=== PATIENT | female | born 1985 | race Two or more races ===

== ENCOUNTER 2020-01-25 13:37 | Emergency (ER) | payer OTHER, SELFPAY ==
--- NOTE | 2020-01-25 | XR_ITS ---
EXAMINATION: XR KNEE, LEFT CLINICAL INFORMATION: Left knee pain. COMPARISON: None TECHNIQUE: Four views of the left knee. FINDINGS: Bones and soft tissues are normal. No fracture or joint effusion. Alignment is anatomic. Joint spaces are well maintained. No abnormal soft tissue calcification. XR/XR knee LT 4V IMPRESSION: Normal left knee.
[2020-01-25 14:55] VITALS: PULSE 72; RESP 18; TEMP 36.9; O2SAT 98; BMI 25.7
--- NOTE | 2020-01-25 15:14 | ED_ITS ---
HPI - Extremity Injury (Lower) General Chief Complaint: Extremity Injury, Lower Stated Complaint: Knee Pain Time Seen by Provider: 01/25/20 15:14 Source: patient Mode of arrival: ambulatory Limitations: no limitations History of Present Illness HPI Narrative: 34 year old female comes in to ER with c/o knee pain. Was playing around and her knee was bent in a way that caused a cracking sound, now she has severe pain and is unable to weightbear. Related Data Previous Rx's Medication Instructions Recorded naproxen [Naprosyn] 500 mg PO BID PRN #30 tab 01/25/20 Allergies Allergy/AdvReac Type Severity Reaction Status Date / Time No Known Allergies Allergy Mild UNKNOWN Verified 01/25/20 15:00 citalopram AdvReac Unknown shortness Verified 01/25/20 14:59 of breath, chest pain Review of Systems Constitutional: Constitutional: Reports fever(s) (subjective), Denies headache(s) and Denies weakness Eyes: Eyes: Denies change in vision and Denies eye pain ENT: Reports Normal hearing present, Denies headache(s) and Denies sore throat Cardiovascular: Cardiovascular: Denies chest pain, Denies palpitations and Denies dyspnea Respiratory: Respiratory: Denies chest congestion, Denies cough, Denies dyspnea and Denies wheezing Gastrointestinal: Gastrointestinal: Denies abdominal pain, Denies change in bowel habits, Denies constipation, Denies diarrhea, Denies nausea and Denies vomiting Genitourinary: Genitourinary: Denies urinary frequency, Denies dysuria, Denies flank pain and Denies urinary incontinence Musculoskeletal: Musculoskeletal: Reports as per HPI, Reports abnormal gait, Reports arthralgias, Reports joint swelling and Reports limited range of motion Comments: Left Knee Integumentary/Breasts: Skin/Breast: Denies change in hair, Denies pruritus, Denies erythema, Denies rash, Denies unusual bruising and Denies wounds Neurologic: Reports Normal hearing present, Reports Abnormal speech present, Reports abnormal gait, Denies headache(s), Denies memory loss, Denies paresthesias, Denies tremor(s) and Denies weakness Psychiatric: Psychiatric: Denies anxiety, Denies depression, Denies irritability and Denies memory loss Endocrine: Endocrine: Denies change in body appearance and Denies palpitations Hematologic/Lymphatic: Hematologic/Lymphatic: Denies easy bleeding, Denies easy bruising and Denies lymphadenopathy Allergic/Immunologic: Allergic/Immunologic: Denies wheezing [facility] Social History Social History Smoking Status: Current every day smoker Smoked in Last 30 Days: No Use of substances other than those prescribed or required for medical reasons: No Advance Directives: No Advance Directives Information Provided: Yes Physical Exam Vital Signs: Vital Signs: Last Vital Signs Temp 98.5 F 01/25/20 14:55 Pulse 72 01/25/20 14:55 Resp 18 01/25/20 14:55 Pulse Ox 98 01/25/20 14:55 Body Mass Index 25.7 Const: General: cooperative, healthy appearing, comfortable, no acute distress, well developed, alert, awake and well groomed Nutritional Appearance: average body habitus Orientation/consciousness: patient oriented x3 Limitations: no limitations HENMT: Head: Yes normal to inspection Ears: hearing grossly normal bilaterally, external ears normal, TM's normal bilaterally, mastoids normal and other (FROM MASS NOTED AT TMJ AREA, TENDER TO PALPATION. NO ERYTHEMA, NO DRAINAGE) Eyes: General: appearance normal, both eyes and all related structures Neck: Other: FIRM MASS NOTED AT RIGHT TMJ REGION, TENDER TO PALPATION Neck: Yes normal visual inspection and Yes no lymphadenopathy Thyroid: Thyroid normal Lymphatic: no lymphadenopathy noted Chest: Chest palpation & inspection: normal inspection of the chest and normal palpation of entire chest wall Resp: Effort & Inspection: normal respiratory effort and able to speak in complete sentences Auscultation: clear to auscultation bilaterally, no crackles, no rales, no rhonchi and no wheezes Cardio: Rate: regular rate Rhythm: regular rhythm GI: Inspection: Yes normal to inspection : General: Yes no CVA tenderness Back/Spine/Pelvis: Back: no CVA tenderness Cervical Spine: normal cervical lordosis and cervical ROM normal Thoracic/Lumbar Spine: thoracic and lumbar spine normal to inspection Skin: General skin exam: no rashes or lesions noted Lesions: no lesions Rashes: no rashes Neuro: General: patient oriented x3 Cranial nerves: Yes Normal hearing present Cognition (Neuro): normal cognition Speech: Abnormal speech present Gait exam (Neuro): Normal gait present Motor exam (neuro): 5/5 motor strength present throughout Sensory Exam: Normal double simultaneous stimulation for sensation Extrem: General: Yes normal to inspection Left lower extremity: knee Details: normal to inspection, tenderness, swelling and knee ligament exam abnormal Details: anterior drawer test, valgus stress test and varus stress test Psych: Appearance: grossly normal Mental Status: mental status grossly normal Speech and movement: Normal speech and movement present Affect: normal affect Attitude: cooperative Thought process: Normal thought pr ocess present Thought content: Normal thought content present Insight: Good insight present (Psych) Judgement: Good judgement present (Psych) Course Course Course Narrative: 34 year old female comes into ER with left knee pain since this morning. Was rough housing, knee cracked and since then she has had sever pain and has not been able to weight bear comfortably, MDM - Extremity Injury (Lower) MDM Narrative Medical decision making narrative: LEFT Knee Injury Medical Records Attestation: I reviewed the patient's medical records. Imaging Data Knee Xray: Radiologist's impression: [address] [address] XRay Report Signed Patient: Xin TabaresMR#: [id number] : 1985Acct:[id number] Age/Sex: 34 / FADM Date: 01/25/20 Loc: HO.ED Attending Dr: Ordering Physician: Generic ED Physician Date of Service: 01/25/20 Procedure(s): XR knee LT 4V Accession Number(s): [id number] cc: Generic ED Physician~ EXAMINATION: XR KNEE, LEFT CLINICAL INFORMATION: Left knee pain. COMPARISON: None TECHNIQUE: Four views of the left knee. FINDINGS: Bones and soft tissues are normal. No fracture or joint effusion. Alignment is anatomic. Joint spaces are well maintained. No abnormal soft tissue calcification. XR/XR knee LT 4V IMPRESSION: Normal left knee. Dictated By:Dylon INFANTE MD Signed By:<Electronically signed by Dylon INFANTE MD in OV>01/25/20 1447 DD/ 1439 TD/TT: Signal Apprentice: KRISSY Discharge Plan Discharge Clinical Impression: Injury of knee, left Patient Disposition: Home, Self-Care Instructions: Knee Sprain (ED), Knee Immobilizer (ED) Prescriptions: New naproxen [Naprosyn] 500 mg tablet 500 mg PO BID PRN (Reason: pain) Qty: 30 RF: 0 Referrals: Jr Del Castillo MD [Physician] - 2 days (Left Knee Injury) Stand Alone Forms: Work/School Release
== END 2020-01-25 16:45 | disposition home or self-care (01) ==
PROVIDERS: Emergency Provider Emergency Medicine; PCP Internal Medicine
DX: M25.562 Pain in left knee (principal); F17.200 Nicotine dependence, unspecified, uncomplicated; Z71.6 Tobacco abuse counseling; Z79.899 Other long term (current) drug therapy
CPT/HCPCS: 73564; 99283; 99284

== ENCOUNTER 2020-12-03 19:01 | Emergency (ER) | payer OTHER, SELFPAY | END 2020-12-03 20:21 | disposition left against medical advice (07) | PROVIDERS: Emergency Provider Emergency Medicine; PCP Internal Medicine | DX: L02.01 Cutaneous abscess of face (principal) ==

== ENCOUNTER 2021-06-01 13:33 | Emergency (ER) | payer OTHER, SELFPAY ==
[2021-06-01 14:24] VITALS: BP 110/43; PULSE 64; RESP 18; TEMP 36.4; O2SAT 99; BMI 24.2
== END 2021-06-01 15:27 | disposition left against medical advice (07) ==
LOC: HO.ED 15:26
PROVIDERS: Emergency Provider Emergency Medicine; PCP Internal Medicine
DX: Z04.1 Encounter for examination and observation following transport accident (principal)
CPT/HCPCS: 99281; 99282

== ENCOUNTER 2021-07-05 09:22 | Emergency (ER) | payer OTHER, SELFPAY ==
[2021-07-05 09:42] VITALS: BP 135/66; PULSE 90; RESP 18; TEMP 36.6; O2SAT 99; BMI 23.5
[2021-07-05 10:16] LABS: COVID-19 Test Negative (Negative); IDNOW Serial# 16C4AD1C
[2021-07-05 10:18] LABS: Influenza A Positive (Negative); Influenza B2 Negative (Negative)
[2021-07-05 10:19] LABS: IDNOW Serial# 08D9AD1C; Strep A Nucleic Acid Negative (Negative)
--- NOTE | 2021-07-05 11:07 | PC.NURSE ---
patient states she was in contact with a friend who was positive for flu . c/o of fever over nights c, cough and body aches for two days. swabbed for covid, flu and strep, results pending .
--- NOTE | 2021-07-05 11:27 | ED_ITS ---
HPI - URI/Sore Throat General Chief Complaint: Upper Respiratory Symptoms Stated Complaint: Fever/Cough Time Seen by Provider: 07/05/21 11:22 Source: patient Mode of arrival: ambulatory Limitations: no limitations History of Present Illness MD elicited complaint: fever, cough, sore throat, rhinorrhea and nasal congestion Onset (ago): day(s) (3) Consistency: constant and progressively worsening Severity: moderate Able to tolerate fluids by mouth: Yes Exacerbating factors: swallowing Relieving factors: nothing Context: sick contacts (Friend has similar symptoms in tested positive for the flu) Associated symptoms: fever, chills, diaphoresis, headache, rhinorrhea, nasal congestion, sore throat and cough Treatments prior to arrival: none Related Data Previous Rx's Medication Instructions Recorded naproxen 500 mg tablet (Naprosyn) 500 mg PO BID PRN #30 tab 01/25/20 sulfamethoxazole 800 1 tab PO BID 10 Days #20 tab 03/24/20 mg-trimethoprim 160 mg tablet (Bactrim DS) acetaminophen 500 mg tablet 1,000 mg PO QID PRN #14 tab 07/05/21 (Tylenol Extra Strength) codeine 10 mg-guaifenesin 100 mg/5 5 ml PO Q6H PRN #120 ml 07/05/21 mL oral liquid (Guaifenesin AC) ibuprofen 800 mg tablet 800 mg PO Q8H PRN #14 tab 07/05/21 Allergies Allergy/AdvReac Type Severity Reaction Status Date / Time citalopram AdvReac Intermediate shortness Verified 07/05/21 09:42 of breath, chest pain Review of Systems Review of Systems: Constitutional : + positive fevers/chills/fatigue/malaise, No Weight loss, No Night Sweats ENT/Mouth : + sore throat/nasal congestion/rhinorrhea/ear pain, No Hearing loss, No Sinus Pain, No Hoarseness, No Swallowing Difficulty Eyes: No Eye Pain, No Swelling, No Redness, No Foreign Body, No Discharge, No Vision Changes Cardiovascular : No Chest Pain, No SOB, No Dyspnea on Exertion, No Orthopnea, No Edema, No Palpitations Respiratory : + Cough, No Sputum, No Wheezing, No Smoke Exposure, No Dyspnea Gastrointestinal : No Nausea, No Vomiting, No Diarrhea, No Constipation, No abdominal Pain, No Hematochezia, No Melena Genitourinary : no irregular bleeding, No Dysuria, No Urinary Frequency, No Hematuria, No Urinary Incontinence, No Urgency, No Flank Pain, No Urinary Flow Changes, No Hesitancy Musculoskeletal : No joint pain, + Myalgias, No Joint Swelling Skin : No Skin Lesions, No rash Neuro : No Weakness, No Numbness, No Paresthesias, No Loss of Consciousness, No Dizziness, No Headache Psych : No Anxiety/Panic, No Depression, No SI/HI/AH/VH, No Social Issues, Heme/Lymph: No Bruising, No Bleeding,No Lymphadenopathy Endocrine : No Polyuria, No Polydipsia, No Temperature Intolerance Yes all other systems are reviewed and are negative [facility] Past Medical History Attestation statement: The following information was validated with the patient. Medical History Abscess of coccyx UTI (urinary tract infection) Surgical History History of tubal ligation Family History Family History Father Medical history unknown Mother Breast cancer Hypertension Sister Asthma Daughter Asthma Maternal Grandfather No problems noted. Social History Social History Alcohol intake: current Alcohol intake frequency: holidays/special occasions only Alcohol type: beer and wine Advance Directives: No Patient : No Physical Exam Vital Signs: Vital Signs: Last Vital Signs Temp 97.8 F 07/05/21 09:42 Pulse 90 07/05/21 09:42 Resp 18 07/05/21 09:42 BP 135/66 07/05/21 09:42 Pulse Ox 99 07/05/21 09:42 BMI result Body Mass Index 23.5 vital signs have been reviewed as normal and appeared to be correct. Blood pressure normal. Heart rate normal. Respiration rate normal. Temperature normal. Oxygen saturation normal. Appearance: Alert. Oriented X3. No acute distress. Head: Normal external exam. Normocephalic. Atraumatic. Eyes: PERRLA. EOMI. Conjunctiva and sclera normal. Eyelids normal. ENT: EAC normal. TM's Normal. Pharynx normal. Uvula midline. Moist mucous membranes. No lesions/ulcerations or masses noted on the tongue. Normal voice. No trismus noted. No drooling noted. No muffled voice noted. Neck: Normal inspection. Neck supple. FROM. No adenopathy. Thyroid Normal. No meningeal signs. No neck mass noted. CVS: Normal heart rate and rhythm. Heart sound normal. Pulses normal throughout. No murmurs/rales/gallops. Respiratory: No respiratory distress. Painless inspiration. Breath sounds normal. No wheezes/rales/rhonchi noted. Chest nontender. No crepitus is noted. No signs of trauma noted. No accessory muscle usage noted or decreased air movement noted. No signs of trauma. Abdomen: Soft and nontender. Bowel sounds normal in all 4 quadrants. No distention noted. No organomegaly noted. No visible injury noted. Back: Full range of motion noted. Nontender. Skin: Skin warm and dry. Normal skin color. Normal skin turgor. No rashes/lesions/lacerations noted. Extremities: Extremities exhibit normal range of motion and nontender. Neuro: Oriented X 3. No motor deficit. No sensory deficit. Reflexes normal. Normal steady gait. No focal neuro deficits noted. CN's II-XII intact bilaterally? Vascular: + radial pulses Normal cap refill. No cyanosis noted to upper extremity nails Course Course Course Narrative: Patient positive for influenza A. Negative for COVID and strep. No imaging indicated. Will DC home with symptomatic treatment instructions return if any new or worsening symptoms to follow up with primary care provider. Pt understands and agrees with plan MDM - URI/Sore Throat Medical Records Attestation: I reviewed the patient's medical records. Lab Data Attestation: I reviewed the patient's lab results. Labs: Lab Results 07/05/21 07/05/21 07/05/21 Range/Units 09:50 09:50 09:50 COVID-19 (OZZY) Negative (Negative) COVID-19 Clin Com See Note Influenza Type A (SEBASTIÁN) Positive A (Negative) Influenza Type B (SE[facility]STI[facility]N) Negative (Negative) Influenza A & B Note See Note S. pyogenes GrpA [place] Negative (Negative) Discharge Plan Discharge Clinical Impression: Influenza A Patient Disposition: Home, Self-Care Instructions: Influenza (ED) Prescriptions: New codeine-guaifenesin [Guaifenesin AC] 10-100 mg/5 mL liquid 5 ml PO Q6H PRN (Reason: cold symptoms) Qty: 120 0RF ibuprofen 800 mg tablet 800 mg PO Q8H PRN (Reason: pain) Qty: 14 0RF acetaminophen [Tylenol Extra Strength] 500 mg tablet 1,000 mg PO QID PRN (Reason: fever or pain) Qty: 14 0RF No Action naproxen [Naprosyn] 500 mg tablet 500 mg PO BID PRN (Reason: pain) Qty: 30 0RF sulfamethoxazole-trimethoprim [Bactrim DS] 800-160 mg tablet 1 tab PO BID 10 Days Qty: 20 0RF Referrals: Mindy Clancy MD [Primary Care Provider] - Stand Alone Forms: Work/School Release Print Language: Kyrgyz
== END 2021-07-05 11:43 | disposition home or self-care (01) ==
PROVIDERS: Emergency Provider Emergency Medicine; PCP Internal Medicine
DX: J10.1 Influenza due to other identified influenza virus with other respiratory manifestations (principal); R50.9 Fever, unspecified; R05.9 Cough, unspecified; R51.9 Headache, unspecified; Z20.822 Contact with and (suspected) exposure to COVID-19; Z79.899 Other long term (current) drug therapy
CPT/HCPCS: 87502; 87635; 87651; 99283

== ENCOUNTER 2021-07-15 17:42 | Emergency (ER) | payer OTHER, SELFPAY | END 2021-07-15 19:54 | disposition left against medical advice (07) | PROVIDERS: Emergency Provider Emergency Medicine; PCP Internal Medicine | DX: R05.9 Cough, unspecified (principal); M54.9 Dorsalgia, unspecified ==

== ENCOUNTER 2021-12-13 13:03 | Outpatient (REF) | payer OTHER, SELFPAY ==
[2021-12-15 05:31] LABS: Rubella IgG Antibody 3.82 Index
== END 2021-12-13 13:04 | disposition home or self-care (01) ==
LOC: HO.LAB 13:03
PROVIDERS: PCP Internal Medicine; Visit Provider Internal Medicine
DX: Z01.84 Encounter for antibody response examination (principal); Z28.39 Other underimmunization status
CPT/HCPCS: 36415; 86735; 86762; 86765; 86787

== ENCOUNTER 2021-12-15 15:33 | Outpatient (REF) | payer OTHER, SELFPAY ==
[2021-12-15 15:43] LABS: MANUAL DIFF FLAG NO
[2021-12-15 15:59] LABS: Basophils Percent Auto 0.4 % (0-2); Eosinophils Absolute Auto 0.1 X10*3/uL (0.0-0.4); Hemoglobin 13.1 g/dl (12.0-16.0); Imm Gran Abs Auto 0.02 X10*3/uL (0.00-0.03); Imm Gran Pct Auto 0.3 % (0.0-0.4); Lymphocytes Absolute Auto 1.9 X10*3/uL (1.2-4.9); Lymphocytes Percent Auto 25.7 % (20-40); Mean Corpuscular HGB Conc 33.6 g/dl (31.0-35.0); Mean Corpuscular Hemoglobin 32.8 pg (27.0-33.0); Mean Corpuscular Volume 97.7 fL (80.0-98.0); Mean Platelet Volume 9.8 fL (9.4-12.3); Monocytes Absolute Auto 0.4 X10*3/uL (0.1-1.2); Neutrophils Absolute Auto 4.9 x10*3/uL (2.0-8.3); Neutrophils Percent Auto 67.6 % (45-73); Platelet Count 244 X10*3/uL (160-400); Red Blood Count 3.99 X10*6/uL (4.20-5.50); Red Cell Distribution Width 12.3 % (11.0-16.0); White Blood Count 7.2 X10*3/uL (4.8-10.8)
[2021-12-15 16:21] LABS: Alanine Aminotransferase 8 U/L (0-31); Albumin Level 4.4 g/dL (3.5-5.0); Alkaline Phosphatase 48 U/L (39-117); Anion Gap 13 (12-20); Aspartate Amino Transferase 17 U/L (5-31); Bilirubin Total 0.5 mg/dL (0.0-1.0); Blood Urea Nitrogen 8 mg/dL (9-16); Calcium 9.4 mg/dL (8.4-10.2); Carbon Dioxide 25 mmol/L (22-29); Chloride 105 mmol/L (96-108); Cholesterol 146 mg/dL; Estimated Glomerular Filt Rate > 60; Glucose Fasting 90 mg/dL (60-99); HDL Cholesterol 54 mg/dL; LDL Cholesterol Calculated 81 mg/dl; Potassium 3.9 mmol/L (3.3-5.1); Sodium 139 mmol/L (135-145); Total Protein 7.2 g/dL (6.5-8.0); Triglycerides 58 mg/dL
[2021-12-15 16:44] LABS: TSH reflex Free T4 1.13 uIU/mL (0.32-4.0); Vitamin D 25-OH Total 20.7 ng/mL (>30)
[2021-12-15 16:46] LABS: Appearance Urine Cloudy; Color Urine Yellow; Glucose Urine UA Negative (Negative); Leukocyte Esterase Urine Trace (Negative); Nitrite Urine Negative (Negative); PH 7.5 (5.0-9.0); UMIC TRIGGER UACC YES; Urine Blood Moderate (2+) (Negative); Urine Ketones Negative (Negative); Urine Protein Negative (Neg-Trace)
[2021-12-15 17:52] LABS: Bacteria Urine Trace (None Seen); Hyaline Casts Urine 0-2 /LPF (0-2); RBC Urine >20 /HPF (0-2); Squamous Epithelial Cell Urine 0-2 /HPF (0-2); UACC Culture Trigger YES
[2021-12-18 01:02] LABS: TS Negative Control Passed; TS Panel A 0; TS Panel B 0; TS Positive Control Passed; TSpotTB Negative (Negative)
== END 2021-12-15 15:34 | disposition home or self-care (01) ==
LOC: HO.LAB 15:33
PROVIDERS: PCP Internal Medicine; Visit Provider Internal Medicine
DX: Z00.00 Encounter for general adult medical examination without abnormal findings (principal); R30.0 Dysuria; E55.9 Vitamin D deficiency, unspecified; Z28.39 Other underimmunization status; Z11.1 Encounter for screening for respiratory tuberculosis
CPT/HCPCS: 36415; 80053; 80061; 81001; 82306; 84443; 85025; 86481; 87086; 87088; 87186

== ENCOUNTER 2021-12-25 10:00 | Outpatient (REF) | payer OTHER, SELFPAY ==
--- NOTE | ~2021-12-25 | MM_ITS ---
EXAMINATION: MM SCREENING DIGITAL BREAST TOMOSYNTHESIS, BILATERAL CLINICAL INFORMATION: Screening. Asymptomatic. Age 36. No prior mammography. Family history breast cancer, mother, grandmother. The lifetime risk of breast cancer based on the Tyrer-Cuzick Model is 17%. COMPARISON: None (current study represents initial baseline exam). TECHNIQUE: Digital breast tomosynthesis is performed in both the craniocaudal and mediolateral oblique views along with computer-aided detection (CAD). Synthesized 2D images are generated from the tomosynthesis. FINDINGS: The breasts are heterogeneously dense, which may obscure small masses (ACR BI-RADS breast composition Category c). There are no significant masses, abnormal calcifications, or other abnormalities. The axilla and skin contours are unremarkable. MM/MM tomosynthesis screening BI IMPRESSION: No mammographic evidence of malignancy. ASSESSMENT: BI-RADS 1: Negative RECOMMENDATION: Routine annual mammography screening, beginning age 40, or earlier as clinical risk factors warrant. This patient's information was entered into a reminder system with a target due date for their next mammogram.
== END 2021-12-25 10:01 | disposition home or self-care (01) ==
LOC: HO.MAMMO 10:00
PROVIDERS: PCP Internal Medicine; Visit Provider Internal Medicine
DX: Z12.31 Encounter for screening mammogram for malignant neoplasm of breast (principal)
CPT/HCPCS: 77063; 77067

== ENCOUNTER 2022-01-18 00:11 | Emergency (ER) | payer OTHER, SELFPAY ==
[2022-01-18 00:22] VITALS: BP 133/85; PULSE 70; RESP 20; TEMP 36.4; O2SAT 97; BMI 23.5
--- NOTE | 2022-01-18 01:20 | ED.NEUROSD ---
HPI - Neuro Symptoms/Deficit General Chief Complaint: Extremity Problem Stated Complaint: left arm weakness, trouble moving it Time Seen by Provider: 01/18/22 01:20 Source: patient Mode of arrival: ambulatory Limitations: no limitations History of Present Illness HPI Narrative: Apparently patient slept in the car with the left hand on the arm rest for about 3 hours woke up and noticed he cannot lift her left hand no other deficit no headache feels slightly now also Related Data Previous Rx's Medication Instructions Recorded amoxicillin 875 mg-potassium 1 tab PO BID 7 days #14 tabs 12/17/21 clavulanate 125 mg tablet cholecalciferol (vitamin D3) 50 50 mcg PO DAILY 90 days #90 caps 12/20/21 mcg (2,000 unit) capsule Allergies Allergy/AdvReac Type Severity Reaction Status Date / Time citalopram AdvReac Intermediate shortness Verified 01/18/22 00:25 of breath, chest pain Review of Systems Review of Systems: Yes all other systems are reviewed and are negative PMFSH Past Medical History Medical History Anxiety Carpal tunnel syndrome 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 Social History Social History Housing: Apartment Alcohol intake: current Alcohol intake frequency: does not drink Alcohol type: beer and wine Patient Tobacco Use Status: Current everyday Tobacco user Cigarettes Per Day: 10 Second Hand Smoke Exposure: Yes Advance Directives: No Advance Directives Information Provided: Yes service: No Current occupational status: employed Cognitive needs: No Hearing needs: No Vision needs: No Physical Exam Vital Signs: Vital Signs: Last Vital Signs Temp 97.5 F 01/18/22 00:22 Pulse 70 01/18/22 00:22 Resp 20 01/18/22 00:22 BP 133/85 01/18/22 00:22 Pulse Ox 97 01/18/22 00:22 O2 Del Method 01/18/22 00:22 BMI result Body Mass Index 23.5 Appearance: Alert. Oriented X3. No acute distress. Eyes: PERRLA, No Nystagmus ENT: Pharynx normal. Oral Mucosa moist Neck: Normal inspection. Neck supple. CVS: Normal heart rate and rhythm. Pulses normal. Respiratory: No respiratory distress. Equal air entry bilateral, no wheezing/rales/rhonchi Abdomen: Soft and nontender. Bowel sounds are present, no mass palpable, no CVA tenderness Skin: Skin warm and dry. Normal skin color. Normal skin turgor. Extremities: No lower extremity edema. No calf tenderness Neuro: Oriented X 3. Left hand drop clinically radial nerve palsy. No sensory deficit.No cerebellar signs , cranial nerves II-XII intact MDM - Neuro Symptoms/Deficit MDM Narrative Medical decision making narrative: Patient with left radial nerve palsy will give splint advised to follow with neurologist Discharge Plan Discharge Clinical Impression: Radial nerve palsy Patient Disposition: Home, Self-Care Instructions: Radial Nerve Palsy (ED) Additional Instructions: Keep the left hand in splint until improved Follow with neurologist Prescriptions: No Action amoxicillin-pot clavulanate 875-125 mg tablet 1 tab PO BID 7 Days Qty: 14 0RF cholecalciferol (vitamin D3) 50 mcg (2,000 unit) capsule 50 mcg PO DAILY 90 Days Qty: 90 3RF Stand Alone Forms: Work/School Release
== END 2022-01-18 02:32 | disposition home or self-care (01) ==
PROVIDERS: Emergency Provider Internal Medicine; PCP Internal Medicine
DX: G56.32 Lesion of radial nerve, left upper limb (principal); F17.210 Nicotine dependence, cigarettes, uncomplicated
CPT/HCPCS: 99283

== ENCOUNTER 2022-01-24 17:15 | Outpatient (REF) | payer OTHER, SELFPAY ==
--- NOTE | ~2022-01-24 | XR_ITS ---
EXAMINATION: XR ELBOW, LEFT CLINICAL INFORMATION: R29.898 - Other symptoms and signs involving the musculoskeletal system COMPARISON: None TECHNIQUE: Left elbow is imaged in 3 views. FINDINGS: Normal bony mineralization. No fracture, dislocation, or destructive process. No capsular effusion. No joint narrowing or erosive changes. No epicondylar or olecranon spurring. XR/XR elbow LT min 3V IMPRESSION: Normal left elbow.
--- NOTE | ~2022-01-24 | XR_ITS ---
EXAMINATION: XR WRIST, LEFT CLINICAL INFORMATION: M21.332 - Wrist drop, left wrist COMPARISON: None TECHNIQUE: Left wrist is imaged in 5 views. FINDINGS: There is no acute or healing fracture, dislocation, destructive process. The pronator quadratus fat pad appears normal. Ulnar variance is neutral. There is no carpal joint narrowing or erosive change or chondrocalcinosis. Normal bony mineralization. XR/XR wrist LT min 3V IMPRESSION: Normal left wrist.
--- NOTE | ~2022-01-24 | XR_ITS ---
EXAMINATION: XR SHOULDER, LEFT CLINICAL INFORMATION: R29.898 - Other symptoms and signs involving the musculoskeletal system COMPARISON: None TECHNIQUE: Left shoulder is imaged in 4 views. FINDINGS: No fracture or dislocation. Normal bony mineralization. The glenohumeral joint appears normal. The acromioclavicular alignment is normal. There are no visible rotator cuff calcifications. XR/XR shoulder LT min 2V IMPRESSION: Normal left shoulder.
[2022-01-24 17:26] LABS: MANUAL DIFF FLAG NO
[2022-01-24 20:25] LABS: Basophils Percent Auto 0.2 % (0-2); Eosinophils Absolute Auto 0.1 X10*3/uL (0.0-0.4); Eosinophils Percent Auto 0.6 % (0-4); Hemoglobin 14.6 g/dl (12.0-16.0); Imm Gran Abs Auto 0.01 X10*3/uL (0.00-0.03); Imm Gran Pct Auto 0.1 % (0.0-0.4); Lymphocytes Absolute Auto 2.4 X10*3/uL (1.2-4.9); Lymphocytes Percent Auto 28.8 % (20-40); Mean Corpuscular Hemoglobin 33.4 pg (27.0-33.0); Mean Corpuscular Volume 98.4 fL (80.0-98.0); Mean Platelet Volume 10.8 fL (9.4-12.3); Monocytes Absolute Auto 0.5 X10*3/uL (0.1-1.2); Neutrophils Absolute Auto 5.4 x10*3/uL (2.0-8.3); Neutrophils Percent Auto 64.3 % (45-73); Platelet Count 286 X10*3/uL (160-400); Red Blood Count 4.37 X10*6/uL (4.20-5.50); Red Cell Distribution Width 11.9 % (11.0-16.0); White Blood Count 8.5 X10*3/uL (4.8-10.8)
[2022-01-24 20:44] LABS: Alanine Aminotransferase 12 U/L (0-31); Albumin Level 4.9 g/dL (3.5-5.0); Alkaline Phosphatase 60 U/L (39-117); Anion Gap 20 (12-20); Aspartate Amino Transferase 26 U/L (5-31); Bilirubin Total 0.9 mg/dL (0.0-1.0); Blood Urea Nitrogen 9 mg/dL (9-16); C Reactive Protein 0.52 mg/dL (< or = 0.50); Calcium 9.5 mg/dL (8.4-10.2); Carbon Dioxide 24 mmol/L (22-29); Chloride 100 mmol/L (96-108); Estimated Glomerular Filt Rate > 60; Glucose Random 82 mg/dL (60-115); Potassium 3.5 mmol/L (3.3-5.1); Sodium 140 mmol/L (135-145); Total Protein 8.1 g/dL (6.5-8.0)
[2022-01-24 21:05] LABS: TSH reflex Free T4 1.24 uIU/mL (0.32-4.0)
[2022-01-24 21:20] LABS: Erythrocyte Sedimentation Rate 2 MM/HR (0-20)
[2022-01-25 05:27] LABS: Folate 14.6 ng/mL (> or = 4.0); Vitamin B12 412 pg/mL (200-900)
== END 2022-01-24 17:16 | disposition home or self-care (01) ==
LOC: HO.LAB 17:15
PROVIDERS: PCP Internal Medicine; Visit Provider Internal Medicine
DX: G56.32 Lesion of radial nerve, left upper limb (principal); M21.332 Wrist drop, left wrist; R29.898 Other symptoms and signs involving the musculoskeletal system; M25.522 Pain in left elbow; M25.512 Pain in left shoulder
CPT/HCPCS: 36415; 73030; 73080; 73110; 80053; 82607; 82746; 84443; 85025; 85652; 86140

== ENCOUNTER 2022-07-29 12:10 | Emergency (ER) | payer OTHER, SELFPAY ==
--- NOTE | ~2022-07-29 | US_ITS ---
EXAMINATION: US RETROPERITONEAL LIMITED (RENAL ONLY) CLINICAL INFORMATION: CVAT radiating to left lower quadrant.. COMPARISON: CT abdomen and pelvis of February 01, 2013 TECHNIQUE: Renal ultrasound. FINDINGS: RIGHT KIDNEY: 12.9 x 3.5 x 5.1 cm (SAG x AP x TRV). The kidney is normal in size, contour, and echogenicity. Renal cortical thickness is normal. There is a nonobstructing 1.3 x 0.7 x 1.1 cm lower pole calculus present. No hydronephrosis. LEFT KIDNEY: 10.8 x 4.8 x 5.0 cm (SAG x AP x TRV). The kidney is normal in size, contour, and echogenicity. Renal cortical thickness is normal. No calculi or focal parenchymal lesions. No hydronephrosis. US/US renal BI IMPRESSION: No evidence of left renal calculus or hydronephrosis. Right renal lower pole nonobstructing calculus..
--- NOTE | 2022-07-29 12:23 | ED.GENADULT ---
HPI - General Adult General Chief complaint: Urogenital-Female Stated complaint: L side lower back pain x3days Time Seen by Provider: 07/29/22 12:26 Source: patient Mode of arrival: ambulatory Limitations: no limitations History of Present Illness HPI narrative: Patient is a 36-year-old female with history of pyelonephritis requiring admission presenting with 3 days of left flank pain and dark urine. Patient reports this morning her pain began to radiate around to her left lower quadrant. She denies any fever in the past few days. She reports that earlier in the week she had cold symptoms and night sweats for 2 nights, but has been fever free for 3 days. She reports not mild nausea but denies any vomiting, constipation, or diarrhea. Related Data Home Medications Medication Instructions Recorded Confirmed No Known Home Meds 03/08/22 03/08/22 Allergies Allergy/AdvReac Type Severity Reaction Status Date / Time citalopram AdvReac Intermediate shortness Verified 03/08/22 15:25 of breath, chest pain Review of Systems Review of Systems: As per HPI. Yes all other systems are reviewed and are negative Constitutional: Constitutional: Reports as per HPI [facility] Past Medical History Medical History Anxiety Carpal tunnel syndrome 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 Social History Social History Housing: Apartment Alcohol intake: current Alcohol intake frequency: does not drink Alcohol type: beer and wine Patient Tobacco Use Status: Current everyday Tobacco user Cigarettes Per Day: 10 e-Cigarette/Vaping Use: Never Used Second Hand Smoke Exposure: Yes Advance Directives: No service: No Current occupational status: employed Cognitive needs: No Hearing needs: No Vision needs: No Physical Exam ED Vital Signs: Vital Signs - 24 hr 07/29/22 12:24 Temperature 98 F Pulse Rate 65 Respiratory Rate 16 Blood Pressure 115/59 L Pulse Oximetry 100 Oxygen Delivery Method Room Air BMI result Body Mass Index 23.9 Const General: cooperative, healthy appearing and no acute distress Orientation/consciousness: oriented to person, oriented to place, oriented to time and patient oriented x3 Limitations: no limitations HENMT Head: Yes normocephalic and Yes atraumatic Ears: external ears normal General nose exam: Normal external nose present Face and sinus: Yes face symmetric Mouth: oropharynx normal and moist mucous membranes Throat: Yes uvula midline Eyes Pupils: Equal, round and reactive pupils present Neck Neck: Yes normal visual inspection and Yes supple Resp Effort & Inspection: normal respiratory effort and able to speak in complete sentences Auscultation: clear to auscultation bilaterally Cardio Rate: regular rate Rhythm: regular rhythm Heart sounds: S1 normal heart sound present and S2 normal heart sound present GI Inspection: Yes normal to inspection and No distended Palpation (GI): Soft to palpation, nontender, no guarding and No Rebound tenderness present Auscultation: normoactive bowel sounds General: Yes CVA tenderness on the left Back/Spine/Pelvis Back: CVA tenderness Skin General skin exam: elasticity normal and turgor normal Neuro General: oriented to person, oriented to place, oriented to time, patient oriented x3, moves all extremities, no focal motor deficits and CN's II-XI intact bilaterally Cranial nerves: Yes Equal, round and reactive pupils present Cognition (Neuro): normal cognition Extrem General: Yes full ROM, Yes no pedal edema and Yes no calf tenderness Psych Mental Status: mental status grossly normal Affect: normal affect Thought process: Normal thought process present Course Course Course Narrative: RME: 36-year-old female past medical history pyelonephritis, anxiety, presenting to the ED complaining of L low back pain radiating to LLQ x3 days. Admits to assoc dark urine. denies fever, chills, N/V + mild left CVA tenderness noted, abdomen soft/nontender Labs, UA, , renal ultrasound ordered Full HPI, ROS and PE to be performed by primary ED provider. Reevaluation(s) Time: 14:06 Reevaluation #2: No evidence of left renal calculus or hydronephrosis on ultrasound, right renal lower pole nonobstructing calculus present. Labs unremarkable. Urine does not show evidence of UTI or pyelo. Feel symptoms likely related to renal calculus which patient has already passed. Discomfort likely related to ureteral spams. Will discharge home on Tylenol and ibuprofen, advised patient to ensure adequate fluid intake and follow-up with PCP. Return precautions discussed at bedside. Advised patient to follow-up with urology if symptoms persist. Medical Decision Making Medical Decision Making [facility] Narrative: Patient is a 36-year-old female with history of pyelonephritis requiring admission presenting with 3 days of left flank pain which today began to radiate to her LLQ, as well as dark urine. On exam patient is nontoxic appearing, awake, alert, oriented x3, VS WNL, abdomen soft and nontender, no guarding or rebound tenderness. She does have left CVA tenderness. Concern for UTI versus pyelonephritis versus kidney stone. Lower concern for ectopic, ovarian cyst or torsion, or diverticulitis. Unlikely appendicitis. Plan: urine hcg, labs, u/s, reasess Please refer to course for remaining clinical decision making. Differential Diagnosis Differential Diagnoses: The differential diagnosis associated with the presentation includes As above Lab Data [facility] Lab Attestation statement: I reviewed the patient's lab results. 07/29/22 12:57 07/29/22 12:57 Labs: Lab Results 07/29/22 07/29/22 07/29/22 Range/Units 12:57 12:57 13:55 WBC 7.5 (4.8-10.8) X10*3/uL RBC 3.73 L (4.20-5.50) X10*6/uL Hgb 12.5 (12.0-16.0) g/dl Hct 36.7 L (37.0-47.0) % MCV 98.4 H (80.0-98.0) fL MCH 33.5 H (27.0-33.0) pg MCHC 34.1 (31.0-35.0) g/dl RDW 11.9 (11.0-16.0) % Plt Count 198 D (160-400) X10*3/uL MPV 9.7 (9.4-12.3) fL Immature Gran % (Auto) 0.1 (0.0-0.4) % Neut % (Auto) 69.4 (45-73) % Lymph % (Auto) 24.1 (20-40) % [place] % (Auto) 5.2 (2-11) % Eos % (Auto) 0.9 (0-4) % Baso % (Auto) 0.3 (0-2) % Lymph # (Auto) 1.8 (1.2-4.9) X10*3/uL [place] # (Auto) 0.4 (0.1-1.2) X10*3/uL Eos # (Auto) 0.1 (0.0-0.4) X10*3/uL Baso # (Auto) 0.0 (0.0-0.2) X10*3/uL Abs Immat Gran (auto) 0.01 (0.00-0.03) X10*3/uL Absolute Neuts (auto) 5.2 (2.0-8.3) x10*3/uL Absolute Nucleated RBC 0.000 (0.0-0.012) X10*3/uL Nucleated RBC % (auto) 0.0 (0.0-0.2) /100WBC Sodium 139 (135-145) mmol/L Potassium 3.9 (3.3-5.1) mmol/L Chloride 109 H (96-108) mmol/L Carbon Dioxide 24 (22-29) mmol/L Anion Gap 10 L (12-20) BUN 9 (9-16) mg/dL Creatinine 0.64 (0.5-1.4) mg/dL Estim Creat Clear Calc 112.6 Estimated GFR > 60 Random Glucose 111 (60-115) mg/dL Calcium 8.6 D (8.4-10.2) mg/dL Total Bilirubin 0.6 (0.0-1.0) mg/dL Direct Bilirubin 0.2 (0.0-0.5) mg/dL AST 20 (5-31) U/L ALT 10 (0-31) U/L Alkaline Phosphatase 45 (39-117) U/L Total Protein 6.6 (6.5-8.0) g/dL Albumin 4.0 (3.5-5.0) g/dL Lipase 18 (8-78) U/L Urine Color Yellow Urine Appearance Clear Urine pH 6.0 (5.0-9.0) Ur Specific [place] 1.020 (1.005-1.025) Urine Protein Negative (Neg-Trace) mg/dL Urine Glucose (UA) Negative (Negative) mg/dL Urine Ketones Trace (Negative) mg/dL Urine Blood Large (3+) H (Negative) Urine Nitrite Negative (Negative) Ur Leukocyte Esterase Small (1+) H (Negative) Urine RBC >20 H (0-2) /HPF Urine WBC 6-10 H (0-5) /HPF Ur Squamous Epith Cells 3-5 (0-2) /HPF Urine Bacteria None Seen (None Seen) Hyaline Casts 0-2 (0-2) /LPF Urine Test (NEGATIVE) 07/29/22 Range/Units 13:55 WBC (4.8-10.8) X10*3/uL RBC (4.20-5.50) X10*6/uL Hgb (12.0-16.0) g/dl Hct (37.0-47.0) % MCV (80.0-98.0) fL MCH (27.0-33.0) pg MCHC (31.0-35.0) g/dl RDW (11.0-16.0) % Plt Count (160-400) X10*3/uL MPV (9.4-12.3) fL Immature Gran % (Auto) (0.0-0.4) % Neut % (Auto) (45-73) % Lymph % (Auto) (20-40) % [place] % (Auto) (2-11) % Eos % (Auto) (0-4) % Baso % (Auto) (0-2) % Lymph # (Auto) (1.2-4.9) X10*3/uL [place] # (Auto) (0.1-1.2) X10*3/uL Eos # (Auto) (0.0-0.4) X10*3/uL Baso # (Auto) (0.0-0.2) X10*3/uL Abs Immat Gran (auto) (0.00-0.03) X10*3/uL Absolute Neuts (auto) (2.0-8.3) x10*3/uL Absolute Nucleated RBC (0.0-0.012) X10*3/uL Nucleated RBC % (auto) (0.0-0.2) /100WBC Sodium (135-145) mmol/L Potassium (3.3-5.1) mmol/L Chloride (96-108) mmol/L Carbon Dioxide (22-29) mmol/L Anion Gap (12-20) BUN (9-16) mg/dL Creatinine (0.5-1.4) mg/dL Estim Creat Clear Calc Estimated GFR Random Glucose (60-115) mg/dL Calcium (8.4-10.2) mg/dL Total Bilirubin (0.0-1.0) mg/dL Direct Bilirubin (0.0-0.5) mg/dL AST (5-31) U/L ALT (0-31) U/L Alkaline Phosphatase (39-117) U/L Total Protein (6.5-8.0) g/dL Albumin (3.5-5.0) g/dL Lipase (8-78) U/L Urine Color Urine Appearance Urine pH (5.0-9.0) Ur Specific [place] (1.005-1.025) Urine Protein (Neg-Trace) mg/dL Urine Glucose (UA) (Negative) mg/dL Urine Ketones (Negative) mg/dL Urine Blood (Negative) Urine Nitrite (Negative) Ur Leukocyte Esterase (Negative) Urine RBC (0-2) /HPF Urine WBC (0-5) /HPF Ur Squamous Epith Cells (0-2) /HPF Urine Bacteria (None Seen) Hyaline Casts (0-2) /LPF Urine Test NEGATIVE (NEGATIVE) Independent Interpretation I performed an independent interpretation of an: Ultrasound Interpretation: I independently reviewed the ultrasound and agree with the radiologist's interpretation. Radiology Impression Discussion of test interpretation with radiology: I have reviewed the radiologist's reading. Radiologist Impression: FINDINGS: RIGHT KIDNEY: 12.9 x 3.5 x 5.1 cm (SAG x AP x TRV). The kidney is normal in size, contour, and echogenicity. Renal cortical thickness is normal. There is a nonobstructing 1.3 x 0.7 x 1.1 cm lower pole calculus present. No hydronephrosis. LEFT KIDNEY: 10.8 x 4.8 x 5.0 cm (SAG x AP x TRV). The kidney is normal in size, contour, and echogenicity. Renal cortical thickness is normal. No calculi or focal parenchymal lesions. No hydronephrosis. US/US renal BI IMPRESSION: No evidence of left renal calculus or hydronephrosis. ? Right renal lower pole nonobstructing calculus.. External Record Review External record reviewed: Inpatient record, Office record and Outpatient record Prescription Management I considered prescription management with: Pain Medication Discharge Plan Discharge Clinical Impression: Acute left flank pain, Calculus of right kidney Patient Disposition: Home, Self-Care Instructions: Kidney Stones (ED), Acute Abdominal Pain (DC), Abdominal Pain (ED), Flank Pain (ED) Additional Instructions: You were evaluated in the emergency department today for your flank pain. Your pain is most likely due to a kidney stone which has passed on its own. The ultrasound showed you have a kidney stone within your right kidney. Your urine does not show evidence of infection at this time. If your urine culture shows evidence of infection we will contact you. We recommend you take 600 mg ibuprofen every 6 hours or Tylenol 650 mg every 6 hours as needed for pain. If needed, you can alternate these medications the take 1 medication every 3 hours. For instance, at noon take ibuprofen, then at 3:00 p.m. take Tylenol, then at 6:00 p.m. take ibuprofen. Be sure to drink adequate fluids. Please follow-up with your primary care provider within 2 days. Return to the emergency department if you experience worsening pain, fever, painful urination, blood in urine, weakness, chest pain, difficulty breathing or any other concerning symptoms. Prescriptions: No Action No Known Home Meds Referrals: [facility] [Provider Group]
[2022-07-29 12:24] VITALS: BP 115/59; PULSE 65; RESP 16; TEMP 36.6; O2SAT 100; BMI 23.9
[2022-07-29 13:00] LABS: MANUAL DIFF FLAG NO
[2022-07-29 13:01] LABS: Basophils Percent Auto 0.3 % (0-2); Eosinophils Absolute Auto 0.1 X10*3/uL (0.0-0.4); Eosinophils Percent Auto 0.9 % (0-4); Hematocrit 36.7 % (37.0-47.0); Hemoglobin 12.5 g/dl (12.0-16.0); Imm Gran Abs Auto 0.01 X10*3/uL (0.00-0.03); Imm Gran Pct Auto 0.1 % (0.0-0.4); Lymphocytes Absolute Auto 1.8 X10*3/uL (1.2-4.9); Lymphocytes Percent Auto 24.1 % (20-40); Mean Corpuscular HGB Conc 34.1 g/dl (31.0-35.0); Mean Corpuscular Hemoglobin 33.5 pg (27.0-33.0); Mean Corpuscular Volume 98.4 fL (80.0-98.0); Mean Platelet Volume 9.7 fL (9.4-12.3); Monocytes Absolute Auto 0.4 X10*3/uL (0.1-1.2); Monocytes Percent Auto 5.2 % (2-11); Neutrophils Absolute Auto 5.2 x10*3/uL (2.0-8.3); Neutrophils Percent Auto 69.4 % (45-73); Platelet Count 198 X10*3/uL (160-400); Red Blood Count 3.73 X10*6/uL (4.20-5.50); Red Cell Distribution Width 11.9 % (11.0-16.0); White Blood Count 7.5 X10*3/uL (4.8-10.8)
[2022-07-29 13:17] LABS: Alanine Aminotransferase 10 U/L (0-31); Alkaline Phosphatase 45 U/L (39-117); Anion Gap 10 (12-20); Aspartate Amino Transferase 20 U/L (5-31); Bilirubin Direct 0.2 mg/dL (0.0-0.5); Bilirubin Total 0.6 mg/dL (0.0-1.0); Blood Urea Nitrogen 9 mg/dL (9-16); Calcium 8.6 mg/dL (8.4-10.2); Carbon Dioxide 24 mmol/L (22-29); Chloride 109 mmol/L (96-108); Creatinine Clr Calc Pharmacy 112.6; Estimated Glomerular Filt Rate > 60; Glucose Random 111 mg/dL (60-115); Lipase 18 U/L (8-78); Potassium 3.9 mmol/L (3.3-5.1); Sodium 139 mmol/L (135-145); Total Protein 6.6 g/dL (6.5-8.0)
[2022-07-29 14:02] LABS: Appearance Urine Clear; Color Urine Yellow; Glucose Urine UA Negative (Negative); Leukocyte Esterase Urine Small (1+) (Negative); Nitrite Urine Negative (Negative); UMIC TRIGGER UACC YES; Urine Blood Large (3+) (Negative); Urine Ketones Trace mg/dL (Negative); Urine Protein Negative (Neg-Trace)
[2022-07-29 14:05] LABS: Bacteria Urine None Seen (None Seen); Hyaline Casts Urine 0-2 /LPF (0-2); RBC Urine >20 /HPF (0-2); UACC Culture Trigger YES; UPreg QC Valid YES; Urine Pregnancy NEGATIVE (NEGATIVE)
== END 2022-07-29 14:46 | disposition home or self-care (01) ==
PROVIDERS: Physician Assistant; Emergency Provider Emergency Medicine; PCP Internal Medicine
DX: N20.0 Calculus of kidney (principal); R10.32 Left lower quadrant pain; F17.210 Nicotine dependence, cigarettes, uncomplicated
CPT/HCPCS: 36415; 76775; 80048; 80076; 81001; 81003; 81025; 83690; 85025; 87086; 99282; 99284

== ENCOUNTER → 2022-08-03 10:55 | Outpatient (BNVA) | payer OTHER, SELFPAY | PROVIDERS: PCP Internal Medicine; Visit Provider Nurse Practitioner Family | DX: N20.0 Calculus of kidney (principal) | CPT/HCPCS: 99202 ==

== ENCOUNTER 2022-10-01 11:43 | Emergency (ER) | payer OTHER, SELFPAY ==
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
[2022-10-01 12:36] VITALS: BP 122/84; PULSE 78; RESP 18; TEMP 36.6; O2SAT 99; BMI 22.1
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
== END 2022-10-01 15:10 | disposition home or self-care (01) ==
PROVIDERS: Emergency Provider Student in an Organized Health Care Education/Training Program
DX: S20.211A Contusion of right front wall of thorax, initial encounter (principal); V47.6XXA Car passenger injured in collision with fixed or stationary object in traffic accident, initial encounter; Y93.89 Activity, other specified; Y92.411 Interstate highway as the place of occurrence of the external cause; Y99.9 Unspecified external cause status
CPT/HCPCS: 71101; 94010; 99282; 99283

== ENCOUNTER 2022-10-03 16:06 | Emergency (ER) | payer OTHER, SELFPAY ==
--- NOTE | ~2022-10-03 | XR_ITS ---
EXAMINATION: XR CHEST 2 VIEWS CLINICAL INFORMATION: Chest pain. COMPARISON: None. TECHNIQUE: Frontal and lateral views of the chest were obtained. FINDINGS: The heart, great vessels, pulmonary vasculature and mediastinum are normal. The lungs show no focal infiltrate, effusion or pneumothorax. There is no acute osseous abnormality. XR/XR chest 2V IMPRESSION: No active cardiopulmonary disease.
[2022-10-03 17:55] VITALS: BP 116/50; PULSE 58; RESP 16; TEMP 37.2; O2SAT 99; BMI 23.4
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
[2022-10-03 23:40] VITALS: BP 129/72; PULSE 53; RESP 16; TEMP 36.5; O2SAT 98
[2022-10-03] MEDS: Ketorolac Tromethamine 60 MG/2 ML VIAL IM (23:46)
== END 2022-10-03 23:55 | disposition home or self-care (01) ==
PROVIDERS: Emergency Provider Emergency Medicine; PCP Internal Medicine
DX: S20.211A Contusion of right front wall of thorax, initial encounter (principal); V49.9XXA Car occupant (driver) (passenger) injured in unspecified traffic accident, initial encounter; R06.02 Shortness of breath; F17.210 Nicotine dependence, cigarettes, uncomplicated; Y93.89 Activity, other specified; Y92.411 Interstate highway as the place of occurrence of the external cause; Y99.9 Unspecified external cause status
CPT/HCPCS: 71046; 96372; 99284; J1885

== ENCOUNTER 2022-10-05 13:46 | Outpatient (REF) | payer OTHER, SELFPAY ==
--- NOTE | ~2022-10-05 | CT_ITS ---
EXAMINATION: CT ABDOMEN AND PELVIS WITHOUT CONTRAST CLINICAL INFORMATION: Calculus of kidney. COMPARISON: Ultrasound kidneys 07/29/2022, CT abdomen and pelvis 02/01/2013. TECHNIQUE: Multidetector volumetric imaging was performed from the superior aspect of the liver through the pubic symphysis without intravenous contrast. Sagittal and coronal reformatted images were obtained on the technologist's workstation. This CT examination was performed using dose optimization techniques as appropriate, variously including the following: *Automated exposure control *Adjustment of mA and/or kV according to patient size (this includes techniques or standardized protocols for targeted exams where dose is matched to indication/reason for exam; i.e. extremities or head) *Use of iterative reconstruction technique DLP: 387 mGy-cm FINDINGS: LUNG BASES: The visualized lung bases are unremarkable. LIVER, GALLBLADDER, AND BILIARY TREE: The liver is normal in size, shape, and attenuation. No focal hepatic lesion or biliary ductal dilatation is present. The gallbladder is unremarkable with no evidence of radiopaque gallstones, gallbladder wall thickening, or obvious pericholecystic inflammatory changes. PANCREAS: Unremarkable. SPLEEN: Unremarkable. ADRENAL GLANDS: Unremarkable. KIDNEYS AND URETERS: Right: There is a large 1.3 cm stone present at the lower pole of the right kidney. About three other 2-3 mm punctate calculi are present. The large stone measures 1600 Hounsfield units and is 9.8 cm from the posterior axillary line. No hydronephrosis is seen. No renal masses. The right ureter is unremarkable. Left: There are no left renal calculi. No renal masses. No hydronephrosis. The left ureter is unremarkable. BLADDER: Nearly empty but unremarkable. GASTROINTESTINAL TRACT: The small and large bowel are unremarkable. The appendix is unremarkable. ABDOMINAL WALL: No significant hernia is appreciated. LYMPH NODES: Normal. VASCULAR: Unremarkable. PELVIC VISCERA: The uterus and adnexa are unremarkable. OSSEOUS STRUCTURES: Unremarkable. CT/CT kidney stone IMPRESSION: Nonobstructing right renal calculi with the largest measuring 1.3 cm. Fleischner guidelines were followed.
== END 2022-10-05 13:47 | disposition home or self-care (01) ==
LOC: HO.CT 13:46
PROVIDERS: PCP Internal Medicine; Visit Provider Nurse Practitioner Family
DX: N20.0 Calculus of kidney (principal)
CPT/HCPCS: 74176

== ENCOUNTER 2022-10-11 08:44 | Outpatient (AMB) | payer OTHER, SELFPAY ==
--- NOTE | 2022-10-11 08:49 | A.OFFVIS_ITS ---
Intake Intake Visit Reasons: follow up CT Scan (set) Intake Note: Patient is present for follow up kidney stones/CT Scan (imaging 10/05/22) Urology Medications: none Blood Thinner: none Supervisor Heading Required: No Accompanied by: Self / Same As Patient Allergies citalopram Adverse Reaction (Intermediate, Verified 10/11/22 11:38) shortness of breath, chest pain Medication List - Last Reconciled 10/11/22 by CORIN Diallo cyclobenzaprine 10 mg PO TID naproxen (Naprosyn) 500 mg PO BID pyridoxine (vitamin B6) 100 mg PO DAILY 90 days HPI HPI Comments History of Present Illness Details Xin is a pleasant 36-year-old female patient of Dr. Jhaveri. She has a past medical history of anxiety, depression, and nicotine dependence. She presents to the office today for a follow up. Of note, patient was seen approxitancely 2 months ago as new patient for nephrolithiasis at which time a CT KUB was ordered for further assessment and evaluation. These results were reviewed with the patient today. There is a large 1.3 cm stone present at the lower pole of the right kidney. About three other 2-3 mm punctate calculi are present. No hydronephrosis is seen. No renal masses. The right ureter is unremarkable. The left kidney with no renal calculi. No renal masses. No hydronephrosis. The left ureter is unremarkable. The bladder is nearly empty but unremarkable. Patient reports since her last office visit here she has since stopped drinking soda. She reports to be drinking plenty of water daily. When asked she denies urinary urgency, urinary frequency, incontinence, nocturia, hematuria, dysuria, foul smelling urine, changes to urinary stream, flank pain, fever, and or chills. When asked patient denies to be drinking water daily. Discussed at length potential causes of nephrolithiasis as well as importance of drinking plentyof water daily. In office urinalysis results reviewed with the patient today. She reports a past medical history of nephrolithasis however without surgical intervention. Discussed surveillance monitoring versus surgical intervention. Discussed risks and benefits of both interventions mention. Patient otherwise denies any urinary issues or concerns at this time. [facility] Medical History Anxiety Carpal tunnel syndrome ASIA III (cervical intraepithelial neoplasia grade III) with severe dysplasia Depression MRSA carrier Surgical History History of tubal ligation Family History Father Medical history unknown Mother Breast cancer Hypertension Sister Asthma Daughter Asthma Maternal Grandfather No problems noted. Social History Housing: Apartment Alcohol intake: current Alcohol intake frequency: does not drink Alcohol type: beer and wine Patient Tobacco Use Status: Current everyday Tobacco user Cigarettes Per Day: 10 e-Cigarette/Vaping Use: Never Used Second Hand Smoke Exposure: Yes service: No Current occupational status: employed Cognitive needs: No Hearing needs: No Vision needs: No Review of Systems Const All systems reviewed & are unremarkable except as noted in HPI and below Reports as per HPI Eyes Reports no additional complaints ENT Reports no additional complaints Card Reports no additional complaints Resp Reports no additional complaints GI Reports no additional complaints Reports as per HPI Musc Reports no additional complaints Neuro Reports no additional complaints Psych Reports as per HPI Endo Reports no additional complaints Dileep/Lymph Reports no additional complaints Aller/Immun Reports no additional complaints Physical Exam Const General: cooperative, healthy appearing, comfortable, no acute distress, well developed, alert and awake Orientation/consciousness: patient oriented x3 Limitations: no limitations HEENT Head: Yes normal to inspection, Yes normocephalic and Yes atraumatic Ears: hearing grossly normal bilaterally Eyes General: appearance normal, both eyes and all related structures Neck Neck: Yes normal visual inspection and Yes trachea midline Chest Chest palpation & inspection: normal inspection of the chest Resp Effort & Inspection: normal respiratory effort and able to speak in complete sentences Cardio Rate: regular rate GI Inspection: Yes normal to inspection General: Yes no CVA tenderness Back/Spine/Pelvis Back: no CVA tenderness Skin General skin exam: no rashes or lesions noted Neuro General: patient oriented x3 Extrem General: Yes normal to inspection Psych Appearance: grossly normal and well kempt Mental Status: mental status grossly normal Speech and movement: Normal speech and movement present and Clear speech present Affect: normal affect Attitude: cooperative Thought process: Normal thought process present Thought content: Normal thought content present Insight: Good insight present (Psych) Judgement: Good judgement present (Psych) Results AMB Urinalysis, Automated UA Leukoctes 15 Antonette/uL Last Edit by Mynglee Smappoabby on 10/11/22 08:59 UA Nitrite Last Edit by Mynglee Smappoabby on 10/11/22 08:59 UA Urobilinogen 0.2 mg/dL Last Edit by Mynglee Bress on 10/11/22 08:59 UA Protein 15 mg/dL Last Edit by Mynglee Smappoabby on 10/11/22 08:59 UA pH 7.0 Last Edit by Mynglee Smappoabby on 10/11/22 08:59 UA Blood 80 Harshad/uL Last Edit by [email or web address] on 10/11/22 08:59 UA Specific Donnelly 1.020 Last Edit by [email or web address] on 10/11/22 08:59 UA Ketone Negative Last Edit by [email or web address] on 10/11/22 08:59 UA Bilirubin 0 mg/dL Last Edit by [email or web address] on 10/11/22 08:59 UA Glucose 0 mg/dL Last Edit by [email or web address] on 10/11/22 08:59 Results Reviewed Results Reviewed: Laboratory Last Values Urine pH (Auto) 7.0 10/11/22 08:53 Specific Donnelly (Auto) 1.020 10/11/22 08:53 Urine Protein (Auto) 15 mg/dL 10/11/22 08:53 Glucose (UA)(Auto) 0 mg/dL 10/11/22 08:53 Urine Ketones (Auto) Negative 10/11/22 08:53 Urine Blood (Auto) 80 Harshad/uL 10/11/22 08:53 Urine Bilirubin (Auto) 0 mg/dL 10/11/22 08:53 Urine Urobilinogen (Auto) 0.2 mg/dL 10/11/22 08:53 Leukocyte Esterase (Auto) 15 Antonette/uL 10/11/22 08:53 Date of Service: 10/05/22 EXAMINATION: CT ABDOMEN AND PELVIS WITHOUT CONTRAST? FINDINGS: LUNG BASES: The visualized lung bases are unremarkable.? LIVER, GALLBLADDER, AND BILIARY TREE: The liver is normal in size, shape, and attenuation. No focal hepatic lesion or biliary ductal dilatation is present. The gallbladder is unremarkable with no evidence of radiopaque gallstones, gallbladder wall thickening, or obvious pericholecystic inflammatory changes.? PANCREAS: Unremarkable.? SPLEEN: Unremarkable.? ADRENAL GLANDS: Unremarkable.? KIDNEYS AND URETERS: Right: There is a large 1.3 cm stone present at the lower pole of the right kidney. About three other 2-3 mm punctate calculi are present. The large stone measures 1600 Hounsfield units and is 9.8 cm from the posterior axillary line. No hydronephrosis is seen. No renal masses. The right ureter is unremarkable. Left: There are no left renal calculi. No renal masses. No hydronephrosis. The left ureter is unremarkable. BLADDER: Nearly empty but unremarkable.? GASTROINTESTINAL TRACT: The small and large bowel are unremarkable. The appendix is unremarkable.? ABDOMINAL WALL: No significant hernia is appreciated.? LYMPH NODES: Normal. VASCULAR: Unremarkable. PELVIC VISCERA: The uterus and adnexa are unremarkable.? OSSEOUS STRUCTURES: Unremarkable.? IMPRESSION: Nonobstructing right renal calculi with the largest measuring 1.3 cm. Assessment & Plan Assessment & Plan (1) Nephrolithiasis: Code(s): N20.0 - Calculus of kidney (2) Microhematuria: Code(s): R31.29 - Other microscopic hematuria Plan: Ureteroscopy We discussed the nature of the decision and reasonable alternatives for performing ureteroscopy. Options such as medical therapy were discussed. Interventions include chemical dissolution, ESWL, ureteroscopy with laser lithotripsy and stent placement, PCNL. The relative uncertainties and benefits related to each alternate procedure were adequately discussed. General surgical risks including, but not limited to - pain, bleeding, infection, myocardial infarction, pulmonary embolus, deep vein thrombosis and cerebrovascular accident which may result in further hospitalization were discussed.? Full disclosure of the procedure as well as all major risks, benefits and complications were discussed including but not limited to damage to the urethra, bladder and kidney infection, damage to the ureter, stent migration or malposition, scarring to the renal pelvis, remnant stone fragments, subsequent stone passage with need for secondary procedures. The overall secondary procedur e rate is approximately 10-15%.? The overall clearance rate is approximately 90- 95%. Success of the procedure in the short-term does not necessarily guarantee that long-term success will be maintained. Suitable follow up will need to be maintained. The patient showed understanding of discussion and wishes to proceed with - cystoscopy, retrograde, ureteroscopy, possible lithotripsy/stone basketing and stent on the right side Plan In office urinalysis results reviewed with the patient today; as noted above. Recent CT imaging results reviewed with the patient; as noted above Discussed at length potential causes for nephrolithiasis Discussed, educated, and encouraged on the importance of drinking plenty of water daily. Discussed adding 1 oz of lemon juice to water daily. Start vitamin B6 as discussed and prescribed. Discussed risks and benefits of surveillance monitoring verses further surgical intervention regarding nephrolithiasis All questions were answered Educational material provided Will schedule for cystoscopy, retrograde, ureteroscopy, possible lithotripsy/stone basketing and stent on the right side with Dr. Garland as discussed. Follow-up status post procedure per Dr. Garland's orders; or sooner with any issues, concerns, and or questions Orders: Orders AMB Urinalysis Automated Today Z13.9 - Encounter for screening, unspecified Medications: New pyridoxine (vitamin B6) 100 mg PO DAILY 90 days 90 tabs 1RF Patient Instructions: The patient had an opportunity to ask questions regarding the treatment plan. All questions were answered. Physical exam, labs, and imaging were discussed and reviewed in detail. As well as risks, benefits, and discussion of treatment choices. No major barriers to understanding were identified. The patient expressed understanding and agreement with the above treatment plan. The patient was made aware they should contact our office by phone for worsening of their current condition, the appearance of new symptoms, or with any questions or concerns. Compliance is encouraged with any medications and follow up testing that is ordered. It is a privilege to be allowed the opportunity to participate in? your urological care.? Again, if you have any questions or concerns If you have any questions or concerns please do not hesitate to contact me. The office is [phone]. This note is constructed using voice recognition software. While every effort has been made to ensure accuracy college or university business manager errors may have been included. Yours sincerely, CORIN Diallo Coding Level of Care Code Est Pt Level 4 (35837) Diagnoses Nephrolithiasis N20.0 Microhematuria R31.29
== END 2022-10-11 09:37 | disposition home or self-care (01) ==
PROVIDERS: Visit Provider Nurse Practitioner Family
DX: N20.0 Calculus of kidney (principal); R31.29 Other microscopic hematuria
CPT/HCPCS: 99214

== ENCOUNTER → 2022-10-11 08:44 | Outpatient (BNVA) | payer OTHER, SELFPAY | PROVIDERS: Visit Provider Nurse Practitioner Family | DX: N20.0 Calculus of kidney (principal); R31.29 Other microscopic hematuria | CPT/HCPCS: 99212 ==

== ENCOUNTER 2022-10-14 23:22 | Emergency (ER) | payer OTHER, SELFPAY ==
[2022-10-14 23:30] VITALS: BP 132/84; PULSE 73; RESP 18; TEMP 36.3; O2SAT 97; BMI 22.9
[2022-10-14 23:56] LABS: MANUAL DIFF FLAG NO
[2022-10-14 23:57] LABS: Basophils Percent Auto 0.4 % (0-2); Eosinophils Absolute Auto 0.1 X10*3/uL (0.0-0.4); Eosinophils Percent Auto 1.5 % (0-4); Hematocrit 36.8 % (37.0-47.0); Hemoglobin 12.7 g/dl (12.0-16.0); Imm Gran Abs Auto 0.01 X10*3/uL (0.00-0.03); Imm Gran Pct Auto 0.1 % (0.0-0.4); Lymphocytes Percent Auto 28.6 % (20-40); Mean Corpuscular HGB Conc 34.5 g/dl (31.0-35.0); Mean Corpuscular Hemoglobin 33.7 pg (27.0-33.0); Mean Corpuscular Volume 97.6 fL (80.0-98.0); Mean Platelet Volume 10.2 fL (9.4-12.3); Monocytes Absolute Auto 0.5 X10*3/uL (0.1-1.2); Monocytes Percent Auto 7.7 % (2-11); Neutrophils Absolute Auto 4.2 x10*3/uL (2.0-8.3); Neutrophils Percent Auto 61.7 % (45-73); Platelet Count 274 X10*3/uL (160-400); Red Blood Count 3.77 X10*6/uL (4.20-5.50); Red Cell Distribution Width 11.9 % (11.0-16.0); White Blood Count 6.9 X10*3/uL (4.8-10.8)
[2022-10-14 23:58] LABS: Appearance Urine Cloudy; Color Urine Yellow; Glucose Urine UA Negative (Negative); Leukocyte Esterase Urine Negative (Negative); Nitrite Urine Negative (Negative); PH 5.5 (5.0-9.0); Specific Gravity - Urine 1.025 (1.005-1.025); UMIC TRIGGER UACC YES; Urine Blood Trace (Negative); Urine Ketones Trace mg/dL (Negative); Urine Protein Trace mg/dL (Neg-Trace)
[2022-10-15 00:02] LABS: Bacteria Urine 2+ (None Seen); Hyaline Casts Urine 0-2 /LPF (0-2); WBC Urine 0-5 /HPF (0-5)
[2022-10-15 00:11] LABS: Alanine Aminotransferase 7 U/L (0-31); Albumin Level 4.4 g/dL (3.5-5.0); Alkaline Phosphatase 50 U/L (39-117); Anion Gap 17 (12-20); Aspartate Amino Transferase 18 U/L (5-31); Bilirubin Total 0.6 mg/dL (0.0-1.0); Blood Urea Nitrogen 12 mg/dL (9-16); Calcium 9.7 mg/dL (8.4-10.2); Carbon Dioxide 23 mmol/L (22-29); Chloride 105 mmol/L (96-108); Creatinine Clr Calc Pharmacy 107.6; Estimated Glomerular Filt Rate > 60; Glucose Random 77 mg/dL (60-115); Potassium 3.8 mmol/L (3.3-5.1); Sodium 141 mmol/L (135-145); Total Protein 7.5 g/dL (6.5-8.0)
[2022-10-15 05:43] VITALS: BP 125/67; PULSE 60; RESP 18; O2SAT 100
--- NOTE | 2022-10-15 08:33 | ED_ITS ---
HPI - Abdominal Pain General Chief Complaint: Abdominal Pain Stated Complaint: Flank pain Time Seen by Provider: 10/15/22 07:22 Source: patient Mode of arrival: ambulatory History of Present Illness HPI narrative: 36-year-old female with known right renal stone and was seen by Urology on 10/11 and there are plans for surgical intervention involving stent and lithotripsy which has not been done and now presents with left flank pain without nausea, vomiting, fevers, chills and denies any urinary symptoms related with this. Related Data Previous Rx's Medication Instructions Recorded cyclobenzaprine 10 mg tablet 10 mg PO TID #10 tabs 10/03/22 pyridoxine (vitamin B6) 100 mg 100 mg PO DAILY 90 days #90 tabs 10/11/22 tablet ketorolac 10 mg tablet 10 mg PO Q6H PRN pain 5 days #20 10/15/22 tabs Allergies Allergy/AdvReac Type Severity Reaction Status Date / Time citalopram AdvReac Intermediate shortness Verified 10/14/22 23:34 of breath, chest pain Review of Systems Review of Systems Pertinent positives and negatives as stated in HPI PMFSH Past Medical History Source: nursing notes reviewed Medical History Anxiety Carpal tunnel syndrome 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 Social History Social History Housing: Apartment Alcohol intake: current Alcohol intake frequency: does not drink Alcohol type: beer and wine Patient Tobacco Use Status: Current everyday Tobacco user Cigarettes Per Day: 10 e-Cigarette/Vaping Use: Never Used Second Hand Smoke Exposure: Yes Advance Directives: No Advance Directives Information Provided: Yes service: No Current occupational status: employed Cognitive needs: No Hearing needs: No Vision needs: No Physical Exam ED Vital Signs: Vital Signs - 24 hr 10/14/22 23:30 10/15/22 05:43 Temperature 97.4 F Pulse Rate 73 60 Respiratory Rate 18 18 Blood Pressure 132/84 125/67 Pulse Oximetry 97 100 Oxygen Delivery Method Room Air BMI result Body Mass Index 22.9 VITAL SIGNS: Reviewed. GENERAL: Well developed, well nourished, in no acute distress. HEAD: Normocephalic/atraumatic EYES: PERRLA, EOMI EARS: Ext canals without abnormality NOSE: Nares patent bilateral OROPHARYNX: no oral lesions noted, posterior pharynx clear NECK: Supple, no adenopathy LUNGS: Normal breath sounds. No adventitious sounds or accessory muscle use. SpO2<100> CARDIOVASCULAR: Regular rate and rhythm without noted murmurs ABDOMEN: Soft, non-tender, non-distended with bowel sounds, no CVA tenderness MUSCULOSKELETAL: No tenderness, deformities, or effusions noted on gross inspection. EXTREMITIES: No cyanosis, clubbing or edema. SKIN: Inspection of the skin reveals no rashes NEUROLOGIC: Alert and oriented x 4. Strength and sensation to light touch were grossly intact x 4. Medical Decision Making Medical Decision Making [facility] Narrative: 36-year-old female with history and clinical presentation, appears well, DDX: Musculoskeletal, renal colic, less likely to be pneumonia/pyelonephritis/UTI. Review of all investigations and hematologic indices are grossly within normal limits and chronically stable without leukocytosis or left shift, no anemia and no thrombocytopenia. Chemistry indices do not demonstrate an HAL nor is there are electrolyte abnormality or liver enzyme derangement. Patient's urinalysis continues to demonstrate hematuria this is likely secondary to known renal calculi. Patient appears otherwise comfortable and highly doubt left-sided renal colic at this time. Patient has good follow-up with urology and will provide her with Tylenol and Toradol in them meantime to help with underlying discomfort. She is otherwise discharged home in stable condition. Differential Diagnosis Differential Diagnoses: The differential diagnosis associated with the presentation includes Please see the discussion above Admission/Observation Consideration of admission/observation: Escalation of care including admis josue/observation considered Please see the discussion above Lab Data [facility] Lab Attestation statement: I reviewed the patient's lab results. Please see the discussion above 10/14/22 23:51 10/14/22 23:51 Labs: Lab Results 10/14/22 10/14/22 10/14/22 Range/Units 23:51 23:51 23:51 WBC 6.9 (4.8-10.8) X10*3/uL RBC 3.77 L (4.20-5.50) X10*6/uL Hgb 12.7 (12.0-16.0) g/dl Hct 36.8 L (37.0-47.0) % MCV 97.6 (80.0-98.0) fL MCH 33.7 H (27.0-33.0) pg MCHC 34.5 (31.0-35.0) g/dl RDW 11.9 (11.0-16.0) % Plt Count 274 D (160-400) X10*3/uL MPV 10.2 (9.4-12.3) fL Immature Gran % (Auto) 0.1 (0.0-0.4) % Neut % (Auto) 61.7 (45-73) % Lymph % (Auto) 28.6 (20-40) % [place] % (Auto) 7.7 (2-11) % Eos % (Auto) 1.5 (0-4) % Baso % (Auto) 0.4 (0-2) % Lymph # (Auto) 2.0 (1.2-4.9) X10*3/uL [place] # (Auto) 0.5 (0.1-1.2) X10*3/uL Eos # (Auto) 0.1 (0.0-0.4) X10*3/uL Baso # (Auto) 0.0 (0.0-0.2) X10*3/uL Abs Immat Gran (auto) 0.01 (0.00-0.03) X10*3/uL Absolute Neuts (auto) 4.2 (2.0-8.3) x10*3/uL Absolute Nucleated RBC 0.000 (0.0-0.012) X10*3/uL Nucleated RBC % (auto) 0.0 (0.0-0.2) /100WBC Sodium 141 (135-145) mmol/L Potassium 3.8 (3.3-5.1) mmol/L Chloride 105 (96-108) mmol/L Carbon Dioxide 23 (22-29) mmol/L Anion Gap 17 (12-20) BUN 12 (9-16) mg/dL Creatinine 0.67 (0.5-1.4) mg/dL Estim Creat Clear Calc 107.6 Estimated GFR > 60 Random Glucose 77 (60-115) mg/dL Calcium 9.7 D (8.4-10.2) mg/dL Total Bilirubin 0.6 (0.0-1.0) mg/dL AST 18 (5-31) U/L ALT 7 (0-31) U/L Alkaline Phosphatase 50 (39-117) U/L Total Protein 7.5 (6.5-8.0) g/dL Albumin 4.4 (3.5-5.0) g/dL Urine Color Yellow Urine Appearance Cloudy Urine pH 5.5 (5.0-9.0) Ur Specific [place] 1.025 (1.005-1.025) Urine Protein Trace (Neg-Trace) mg/dL Urine Glucose (UA) Negative (Negative) mg/dL Urine Ketones Trace (Negative) mg/dL Urine Blood Trace H (Negative) Urine Nitrite Negative (Negative) Ur Leukocyte Esterase Negative (Negative) Urine RBC 3-5 H (0-2) /HPF Urine WBC 0-5 (0-5) /HPF Ur Squamous Epith Cells 11-20 (0-2) /HPF Urine Bacteria 2+ (None Seen) Hyaline Casts 0-2 (0-2) /LPF External Record Review External record reviewed: Office record, Outpatient record and Prior outpatient labs Discharge Plan Discharge Clinical Impression: Muscle strain of anterior chest wall, Left flank pain Patient Disposition: Home, Self-Care Instructions: Muscle Strain (ED), Flank Pain (ED), Chest Wall Pain (ED) Additional Instructions: 1. Resume all home medications with the exception of the naproxen. 2. Tylenol 1000 mg, orally, every 6 hours as needed for pain control. Do not exceed 4000 mg within 24 hours. 3. Continue your follow-up with urology as scheduled. Return to the ER for any worsening symptoms. Prescriptions: New ketorolac 10 mg tablet 10 mg PO Q6H PRN (Reason: pain) 5 Days Qty: 20 0RF Rx Instructions: Patient received Toradol in the emergency room. Discontinued naproxen [Naprosyn] 500 mg tablet 500 mg PO BID Qty: 20 0RF No Action cyclobenzaprine 10 mg tablet 10 mg PO TID Qty: 10 0RF pyridoxine (vitamin B6) 100 mg tablet 100 mg PO DAILY 90 Days Qty: 90 1RF Referrals: Danielito Jhaveri MD [Primary Care Provider] -
--- NOTE | 2022-10-15 09:15 | PC.NURSE ---
aox4. calm, coop. abdominal pain rad to left flank. no rsp distress. VSS. no neuro deficits. no n/v/d.
[2022-10-15 10:00] VITALS: BP 130/75; PULSE 64; RESP 18; TEMP 36.7; O2SAT 100
[2022-10-15] MEDS: Acetaminophen 325 MG TABLET 975 MG PO (10:16)
[2022-10-15] MEDS: Ketorolac Tromethamine 15 MG/ML VIAL IM (10:22)
== END 2022-10-15 11:46 | disposition home or self-care (01) ==
PROVIDERS: Emergency Provider Student in an Organized Health Care Education/Training Program; PCP Internal Medicine
DX: R10.2 Pelvic and perineal pain (principal); R07.89 Other chest pain; F17.200 Nicotine dependence, unspecified, uncomplicated; Z71.6 Tobacco abuse counseling
CPT/HCPCS: 36415; 80053; 81001; 85025; 96372; 99284; J1885

== ENCOUNTER 2022-10-31 10:09 | Day surgery (SDC) | payer OTHER, SELFPAY ==
[2022-10-27 09:14] VITALS: BMI 23.5
--- NOTE | 2022-10-28 09:35 | HO.ANESPROP2 ---
Documented by User: Coni Tay NP 10/28/22 09:36 HPI - Anesthesia Eval Consult details Narrative: 36yo F for Cystoscopy, Ureteroroscopy, Retro, Laser w/ poss stent PMFSH Active Problems Active Problems: All Active Problems (Updated 10/16/22 @ 00:04 by Background Shelley) Nephrolithiasis (Acute) Microhematuria (Acute) Staghorn calculus (Acute) Wrist drop, left (Acute) Left arm weakness (Acute) Left radial nerve palsy (Acute) Breast cancer screening (Acute) Smoker (Acute) Anxiety (Acute) Dysuria (Acute) Annual physical exam (Acute) Tuberculosis screening (Acute) Incomplete immunization series (Acute) Abscess of coccyx (Acute) UTI (urinary tract infection) (Acute) Past Medical History Medical History Anxiety Carpal tunnel syndrome ASIA III (cervical intraepithelial neoplasia grade III) with severe dysplasia Depression MRSA carrier Family History Family History Father Medical history unknown Mother Breast cancer Hypertension Sister Asthma Daughter Asthma Maternal Grandfather No problems noted. Surgical History Surgical History History of tubal ligation Social History Social History Housing: Apartment Alcohol intake: current Alcohol intake frequency: a few times a month Alcohol type: beer and wine Patient Tobacco Use Status: Current everyday Tobacco user Tobacco use type: Cigarette Cigarettes Per Day: 6 Years Smoked: 22 Smoked in Last 30 Days: Yes e-Cigarette/Vaping Use: Never Used Second Hand Smoke Exposure: Yes Use of substances other than those prescribed or required for medical reasons: Yes Advance Directives: No Advance Directives Information Provided: Yes service: No Current occupational status: employed Cognitive needs: No Hearing needs: No Vision needs: No Meds Allergies Allergy/AdvReac Type Severity Reaction Status Date / Time citalopram AdvReac Intermediate shortness Verified 10/31/22 10:21 of breath, chest pain Exam Exam Date and Time: October 28, 2022 0935 Height,Weight and Vital Signs: Height 5 ft 7 in Weight 68.039 kg Pertinent Lab Results Pertinent Lab Results: Laboratory Tests 10/14/22 10/14/22 23:51 23:51 WBC 6.9 Hgb 12.7 Hct 36.8 L Plt Count 274 D Sodium 141 Potassium 3.8 Chloride 105 Carbon Dioxide 23 BUN 12 Creatinine 0.67 Assessment and Plan Assessment Anesthesia Assessment: Chart Reviewed Documented by User: Dewey Bhakta MD 10/31/22 12:45 PMFSH Past Medical History Medical History Anxiety Carpal tunnel syndrome ASIA III (cervical intraepithelial neoplasia grade III) with severe dysplasia Depression MRSA carrier Patient : No Family History Family History Father Medical history unknown Mother Breast cancer Hypertension Sister Asthma Daughter Asthma Maternal Grandfather No problems noted. Family history of problems with anesthesia: No Surgical History Surgical History History of tubal ligation History of Problems with Anesthesia: No Social History Social History Housing: Apartment Alcohol intake: current Alcohol intake frequency: a few times a month Alcohol type: beer and wine Patient Tobacco Use Status: Current everyday Tobacco user Tobacco use type: Cigarette Cigarettes Per Day: 6 Years Smoked: 22 Smoked in Last 30 Days: Yes e-Cigarette/Vaping Use: Never Used Second Hand Smoke Exposure: Yes Use of substances other than those prescribed or required for medical reasons: Yes Advance Directives: No Advance Directives Information Provided: Yes service: No Current occupational status: employed Cognitive needs: No Hearing needs: No Vision needs: No Meds Allergies Allergy/AdvReac Type Severity Reaction Status Date / Time citalopram AdvReac Intermediate shortness Verified 10/31/22 10:21 of breath, chest pain Exam Airway Mallampati Class: I TM Dist: >3cm Neck ROM: Full Loose/Missing/Broken Teeth: No Heart: ok Lungs: ok Assessment and Plan Assessment Anesthesia Assessment: Anesthesia Plan Discussed and Chart Reviewed Final Anesthetic Review Family History of Problems with Anesthesia: No History of Problems with Anesthesia: No NPO: Yes ASA Class: II Final Preanesthetic Review: No Changes in Pt Med Stat, Meds/Allgs Chart Reviewed, Consent Obtained/Reviewed and Anes Risks/Benef Reviewed Patient Risk: Low Procedure Risk: Low Anesthetic Plan Anesthetic Plan: GA and Agree w/ Assess. and Plan Disposition: Standard PACU
[2022-10-31] VITALS (9 sets, daily range): BP systolic 103–118; BP diastolic 58–66; PULSE 50–71; RESP 16; TEMP 36.7–37.2; O2SAT 98–100; BMI 22.1
--- NOTE | ~2022-10-31 | FL_ITS ---
EXAMINATION: XR FLUOROSCOPY WITH IMAGES CLINICAL INFORMATION: Right renal stone COMPARISON: Previous CT of the abdomen and pelvis August 2022 TECHNIQUE: Fluoroscopy Supervised By: Dr. Anson Garland. Fluoroscopy Time: 120 seconds. Cumulative Dose: 21 mGy. DAP: 912 oh Gycm2. Images: 5. FINDINGS: Initial image demonstrates a stone projecting over the lower pole of the right kidney. Later images demonstrate a catheter in the right ureter and a smaller tracking catheter projecting over the lower pole of the right kidney adjacent to the stone. There is mild right hydronephrosis. Final image demonstrates the proximal end of a right internal ureteral stent. FL/FL guidance in OR IMPRESSION: Fluoroscopy guidance for urology procedure.
[2022-10-31] MEDS: Lactated Ringers 1,000 ML 100 ML IVCONT (10:47)
--- NOTE | 2022-10-31 12:00 | MHC.SHP ---
Pre-Procedural Eval Section A Date of Service: 10/31/22 The patient is an INPATIENT: No Changes since office visit: No Cold of Flu in the past 2 weeks, No New Medical Problems, No Changes in Medication and No Patient answered all questions The History & Physical has been completed within 30 days and I have reviewed it.: Yes Section B Chief Complaint: Calculus of kidney Allergies: Allergies Allergy/AdvReac Type Severity Reaction Status Date / Time citalopram AdvReac Intermediate shortness Verified 10/31/22 10:21 of breath, chest pain Plan Diagnosis/Plan: Unchanged ( cystoscopy, right retrograde, right ureteroscopy with laser lithotripsy stent placement) I have reviewed the history and physical and performed a pertinent physical examination on my patient. No changes have occurred unless specified. Time Spent With Patient Time: Total time managing care of this patient today ____ minutes.
--- NOTE | 2022-10-31 13:40 | P.OP_ITS ---
Operative Note Operative Note Date of Service: 10/31/22 Narrative: PreOperative Diagnosis: Right renal stone Post Operative Diagnosis: right renal stone Procedure: - cystoscopy, right retrograde - right dilatation of ureteric orifice under fluoroscopy - right ureteroscopy, laser lithotripsy - modified 22 75% longer than typical 1.5 cm stone - ride stent placement Surgeon: Dr Anson Garland Anesthesia: General Indications for procedure: 1.5 cm right renal stone lower pole Procedure: After informed consent was verified patient was brought to the operating placed in supine position. Anesthesia was administered per protocol. Patient was placed in modified dorsal lithotomy position and prepped and draped in a sterile fashion. Safety pause time-out and side of surgery confirmed. Antibiotics confirmed. 22 [place] cystoscope was inserted per urethra. Bladder was normal in its entirety. Both ureteric orifices were in normal position. The right ureteric orifice was cannulated and a retrograde examination was performed. filling defect right lower pole. A Sensor guidewire was placed up to the level of the renal pelvis under fluoroscopy. The rigid cystoscope was removed and the inner cannula of ureteric access sheath was used under fluoroscopy to dilate the ureteric orifice. narrowing seen at right UPJ The ureteric access sheath was placed and the inner cannula with access wire removed. The digital flexible ureteral scope was placed over the wire. Stone counter lower pole. Using a 272 laser fiber stone was broken in small pieces using popcorn technique. This took 75% longer than typical approximately 60 minutes due to large stones in the stone. We were unable to use a basket to remove stone fragments secondary to distal anatomy at the UPJ. At the completion of the stone procedure a Sensor wire was placed back into the renal pelvis. A 7 [place] by 26 cm double-J stent was placed into the renal pelvis and bladder under a combination of fluoroscopy and direct visualization. The symphisis pubis was used as a radiographic marker to release the stent and good coil was seen within the bladder confirming position The bladder was emptied. The patient tolerated the procedure well and was extubated in the operating room, and transferred in stable condition to the recovery area. Pathology: Drains: as above stay for 2 weeks
[2022-10-31] MEDS: Phenazopyridine HCL 100 MG TABLET PO (14:01)
== END 2022-10-31 15:21 | disposition home or self-care (01) ==
PROVIDERS: PCP Internal Medicine; Visit Provider Urology
PROC: (CPT 52356; principal; 2022-10-31 12:10)
DX: N20.0 Calculus of kidney (principal); R31.29 Other microscopic hematuria; F41.8 Other specified anxiety disorders; Z22.322 Carrier or suspected carrier of Methicillin resistant Staphylococcus aureus; Z79.1 Long term (current) use of non-steroidal anti-inflammatories (NSAID); Z79.899 Other long term (current) drug therapy; Z88.8 Allergy status to other drugs, medicaments and biological substances; F17.210 Nicotine dependence, cigarettes, uncomplicated
CPT/HCPCS: 52356; C1758; C1769; C2617; J0131; J1885; J1956; J2250; J2405; J3010; Q9967

== ENCOUNTER → 2022-10-31 10:09 | Outpatient (BNV) | payer OTHER, SELFPAY | PROVIDERS: PCP Internal Medicine; Visit Provider Urology | DX: N20.0 Calculus of kidney (principal) | CPT/HCPCS: 52356; 74420 ==

== ENCOUNTER 2022-11-17 09:59 | Outpatient (AMB) | payer OTHER, SELFPAY ==
--- NOTE | 2022-11-17 10:08 | A.OFFVIS_ITS ---
Intake Intake Visit Reasons: post op stent removal Intake Note: Patient is present for Cystoscopy Urology Med: Solifenacin, Vitamin b6 Antibiotic Allergy: None Blood Thinner: None Pharmacy: [facility] Disposable Cystoscope used during Procedure LOT#: [id number] EXP: 07/31/2024 Allergies citalopram Adverse Reaction (Intermediate, Verified 11/17/22 10:12) shortness of breath, chest pain HPI HPI Comments History of Present Illness Details Xin is a pleasant female. She is a patient Dr. Jhaveri. She seen for the following urologic conditions - nephrolithiasis Here for stent removal Recommend Litholink with ultrasound in 2 months Nephrolithiasis Presentation with large right renal stone Intervention - 11/09 ureteroscopy Therapeutic plan - vitamin B6 - fluids - Litholink REPLACED BY [facility] Medical History Anxiety Carpal tunnel syndrome ASIA III (cervical intraepithelial neoplasia grade III) with severe dysplasia Depression MRSA carrier Surgical History History of tubal ligation Family History Father Medical history unknown Mother Breast cancer Hypertension Sister Asthma Daughter Asthma Maternal Grandfather No problems noted. Social History Housing: Apartment Alcohol intake: current Alcohol intake frequency: a few times a month Alcohol type: beer and wine Patient Tobacco Use Status: Current everyday Tobacco user Tobacco use type: Cigarette Cigarettes Per Day: 6 Years Smoked: 22 e-Cigarette/Vaping Use: Never Used Second Hand Smoke Exposure: Yes service: No Current occupational status: employed Cognitive needs: No Hearing needs: No Vision needs: No Review of Systems Const Denies chills and Denies fever(s) Card Reports no additional complaints and Denies syncope Resp Denies cough GI Denies abdominal pain and Denies heartburn Reports as per HPI and Denies change in libido Neuro Denies syncope Psych Denies change in libido Endo Denies change in libido Physical Exam Const General: cooperative, healthy appearing, comfortable and no acute distress Orientation/consciousness: patient oriented x3 HEENT Face and sinus: Yes normal facial exam Mouth: moist mucous membranes Neck Neck: Yes normal visual inspection, Yes full ROM and Yes trachea midline Chest Chest palpation & inspection: normal inspection of the chest Resp Effort & Inspection: normal respiratory effort, able to speak in complete s entences and no respiratory distress GI Inspection: Yes normal to inspection Back/Spine/Pelvis Cervical Spine: normal cervical lordosis Thoracic/Lumbar Spine: thoracic and lumbar spine normal to inspection Skin General skin exam: no rashes or lesions noted Neuro General: patient oriented x3, gait normal, tone normal and moves all extremities Extrem General: Yes normal to inspection and Yes capillary refill normal Office Procedures Cystoscopy Consent Discussed risk and benefit or proposed procedure with the patient. Information consent for procedure given to the patient. Discussed technical aspects, risks, benefits and alternatives in full. Addressed all of the patient's questions and concerns regarding the procedure. The patient demonstrated knowledge and understanding. They wish to proceed with this procedure. Preparation The patient was prepped in the usual manner. A patient admitting clerk was present and in the room. Genitalia was prepped with betadine solution in a sterile manner. Lidocaine Jelly 2% was placed into the urethra and 16Fr flexible Olympus cystoscope was inserted into the meatus after adequate lubrication. Procedure A well lubricated 16 [place] cystoscope was placed No abnormality noted of urethra during placement Indwelling stent seen within bladder emerging from right ureteric orifices The stent was grasped with a 3 prong grasper and removed without difficulty The patient tolerated the procedure well [id number] with stent removal DISPOSABLE SCOPE URO-G FLEXIBLE SCOPE Procedure code (CPT) selection complete Office Meds lidocaine HCl Performing Provider: Anson Garland MD Administered by: Elizabeth Leal RN on 11/17/22 10:15 Dose Route Admin Location Lot Number Expiration Date ND Base Filler Operator 10 mL intra-urethral nitrofurantoin monohyd/m-cryst 100 mg Performing Provider: Anson Garland MD Administered by: Elizabeth Leal RN on 11/17/22 10:15 Dose Route Admin Location Lot Number Expiration Date ND Base Filler Operator 100 mg PO naproxen Performing Provider: Anson Garland MD Administered by: Elizabeth Leal RN on 11/17/22 10:15 Dose Route Admin Location Lot Number Expiration Date NDC Base Filler Operator 500 mg PO Results AMB Urinalysis, Automated UA Leukoctes 125 Antonette/uL Last Edit by BERNARDO Braswell on 11/17/22 10:24 UA Nitrite Negative Last Edit by Vero Clancy, RMA on 11/17/22 10:24 UA Urobilinogen 1 mg/dL Last Edit by Vero Clancy, RMA on 11/17/22 10:24 UA Protein 300 mg/dL Last Edit by Vero Clancy, RMA on 11/17/22 10:24 UA pH 6.5 Last Edit by Vero Clancy, RMA on 11/17/22 10:24 UA Blood 200 Harshad/uL Last Edit by Vero Clancy, RMA on 11/17/22 10:24 UA Specific [place] 1.025 Last Edit by Vero Clancy, RMA on 11/17/22 10: 24 UA Ketone Negative Last Edit by Vero Clancy, RMA on 11/17/22 10:24 UA Bilirubin 0 mg/dL Last Edit by Vero Clancy, RMA on 11/17/22 10:24 UA Glucose 0 mg/dL Last Edit by Vero Clancy, RMA on 11/17/22 10:24 Results Reviewed Results Reviewed: Laboratory Last Values Urine pH (Auto) 6.5 11/17/22 10:13 Specific [place] (Auto) 1.025 11/17/22 10:13 Urine Protein (Auto) 300 mg/dL 11/17/22 10:13 Glucose (UA)(Auto) 0 mg/dL 11/17/22 10:13 Urine Ketones (Auto) Negative 11/17/22 10:13 Urine Blood (Auto) 200 [place]arshad/uL 11/17/22 10:13 Urine Nitrite (Auto) Negative 11/17/22 10:13 Urine Bilirubin (Auto) 0 mg/dL 11/17/22 10:13 Urine Urobilinogen (Auto) 1 mg/dL 11/17/22 10:13 Leukocyte Esterase (Auto) 125 [place]/uL 11/17/22 10:13 Assessment & Plan Assessment & Plan (1) Staghorn calculus: Code(s): N20.0 - Calculus of kidney (2) Microhematuria: Code(s): R31.29 - Other microscopic hematuria Plan Litholink, imaging Orders: Orders US renal BI 2 Months N20.0 - Calculus of kidney AMB Cystoscopy Today N20.0 - Calculus of kidney AMB Urinalysis Automated Today Z13.9 - Encounter for screening, unspecified Patient Instructions: Imaging studies, laboratory and physical exam results were discussed and reviewed in detail. No major barriers to patient understanding were identified. An opportunity to ask questions regarding the treatment plan was provided. All questions were answered. The patient expressed understanding and agreement with the above treatment plan. The patient is aware they should contact our office by phone for worsening of their current condition or the appearance of new urologic symptoms. Compliance is encouraged with any medications and followup testing that is ordered. It is a privilege to participate in the urologic care of your patient. If you have any questions or concerns regarding treatment for the above conditions, or other urologic issues, please do not hesitate to contact me. The office telephone contact is [phone]. This note is constructed using voice recognition software. While every effort has been made to ensure accuracy neuro psych sales specialist errors may have been included. Yours sincerely, Dr Anson Garland MD, [facility] - Urology Providers of Expert, Compassionate Care for the Genitourinary System Coding Level of Care Code Est Pt Level 3 (76848) Diagnoses Staghorn calculus N20.0 Microhematuria R31.29 CPT Codes Cystoscopy - CPT: 34188-[id number] with stent removal ([id number]) Cystoscopy - CPT: DISPOSABLE SCOPE URO-G FLEXIBLE SCOPE ([id number])
== END 2022-11-17 11:10 | disposition home or self-care (01) ==
PROVIDERS: PCP Internal Medicine; Visit Provider Urology
DX: N20.0 Calculus of kidney (principal); R31.29 Other microscopic hematuria
CPT/HCPCS: 52310; 99213

== ENCOUNTER → 2022-11-17 09:59 | Outpatient (BNVA) | payer OTHER, SELFPAY | PROVIDERS: PCP Internal Medicine; Visit Provider Urology | DX: Z48.816 Encounter for surgical aftercare following surgery on the genitourinary system (principal); R31.29 Other microscopic hematuria | CPT/HCPCS: 52310; 81003; 99212; C1747 ==

== ENCOUNTER 2023-03-24 12:43 | Outpatient (REF) | payer OTHER, SELFPAY ==
[2023-03-24 14:01] LABS: Appearance Urine Cloudy; Color Urine Yellow; Glucose Urine UA Negative (Negative); Leukocyte Esterase Urine Moderate (2+) (Negative); Nitrite Urine Negative (Negative); UMIC TRIGGER UACC YES; Urine Blood Trace (Negative); Urine Ketones Negative (Negative); Urine Protein Trace mg/dL (Neg-Trace)
[2023-03-24 14:08] LABS: Bacteria Urine 3+ (None Seen); Hyaline Casts Urine 0-2 /LPF (0-2); UACC Culture Trigger YES; WBC Urine >50 /HPF (0-5)
== END 2023-03-24 12:44 | disposition home or self-care (01) ==
LOC: HO.LAB 12:43
PROVIDERS: PCP Internal Medicine; Visit Provider Internal Medicine
DX: R39.9 Unspecified symptoms and signs involving the genitourinary system (principal)
CPT/HCPCS: 81001; 81003; 87086; 87088; 87186

== ENCOUNTER 2023-05-05 10:28 | Outpatient (REF) | payer OTHER, SELFPAY ==
--- NOTE | ~2023-05-05 | US_ITS ---
EXAMINATION: US RETROPERITONEAL LIMITED (RENAL ONLY) CLINICAL INFORMATION: Calculus of kidney. COMPARISON: CT stone study 10/05/2022. Renal ultrasound 07/29/2022. TECHNIQUE: Real-time imaging of the kidneys. Limited visualization due to bowel gas. FINDINGS: RIGHT KIDNEY: 12.0 x 4.4 x 6.0 cm (SAG x AP x TRV). Mild caliectasis. No renal calculi. Renal cortical thickness is normal. Limited visualization. Upper pole 0.4 cm cyst is likely simple. There is no specific indication for follow-up imaging. LEFT KIDNEY: 10.3 x 4.1 x 4.9 cm (SAG x AP x TRV). No hydronephrosis. No renal calculi. Renal cortical thickness is normal. Limited visualization. US/US renal BI IMPRESSION: Mild right calyectasis. No renal calculi.
== END 2023-05-05 10:29 | disposition home or self-care (01) ==
LOC: HO.US 10:28
PROVIDERS: PCP Internal Medicine; Visit Provider Urology
DX: N20.0 Calculus of kidney (principal)
CPT/HCPCS: 76775

== ENCOUNTER 2023-05-10 10:08 | Outpatient (AMB) | payer OTHER, SELFPAY ==
--- NOTE | 2023-05-10 10:14 | MHC.PC.OV ---
Vital Signs 05/10/23 10:15 Height 5 ft 7 in Weight 145 lb 6 oz BMI 22.8 BP 100/62 Blood Pressure Location Lt brachial Position Sitting Pulse 57 Pulse Source Pulse Oximeter Pulse Oximetry (%) 98 Oxygen Delivery Method Room Air Intake Visit Reasons: OBGYN Referral-PAP Smear Hand Chain Maker Required: No Accompanied by: Self / Same As Patient Allergies citalopram Adverse Reaction (Intermediate, Verified 05/10/23 10:31) shortness of breath, chest pain Medication List - Last Reconciled 05/10/23 by Danielito Jhaveri MD cholecalciferol (vitamin D3) 50 mcg PO DAILY 90 days pyridoxine (vitamin B6) 100 mg PO DAILY 90 days solifenacin 5 mg PO DAILY 14 days Tobacco use date assessed: 05/10/23 Dental Screening Dental Screen Date: 05/10/23 Did you have a dental visit in the last 12 months?: No Did you have a dental problem in the last 6 months where you did not have access to dental care?: No Was dental information given to patient?: No HPI OBGYN Referral-PAP Smear HPI Details Patient comes in today for her follow up visit - was last seen by me in 02/2022 States that she currently feels okay Relates that it has been a few years now since 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 and when she tried calling the [facility] office to schedule an appointment, was supposedly advised that she will need a referral from her PCP as she has not been back in several years Patient currently denies any vaginal discharge or any gynecologic symptoms Would also like to get some labs ordered to check for everything as it also has been a while since she's had her labs done Would like to have STD testings included in her labs as well She denies any headaches or dizziness Denies any chest pains, no SOB No nausea/vomiting, no abdominal pain No change in bowel habits noted [facility] Medical History (Updated 05/10/23 @ 10:46 by Danielito Jhaveri MD) Vitamin D deficiency Depression Anxiety 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 Social History Housing: Apartment Alcohol intake: current Alcohol intake frequency: a few times a month Alcohol type: beer and wine Patient Tobacco Use Status: Current everyday Tobacco user Tobacco use type: Cigarette Cigarettes Per Day: 6 Years Smoked: 22 e-Cigarette/Vaping Use: Never Used Second Hand Smoke Exposure: Yes service: No Current occupational status: employed Cognitive needs: No Hearing needs: No Vision needs: No Questionnaire PHQ-9 Over the last 2 weeks, how often have you been bothered by any of the following problems? 1. Little interest or pleasure in doing things: not at all 2. Feeling down, depressed, or hopeless: not at all 3. Trouble falling or staying asleep, or sleeping too much: not at all 4. Feeling tired or having little energy: not at all 5. Poor appetite or overeating: not at all 6. Feeling bad about yourself - or that you are a failure or have let yourself or your family down: not at all 7. Trouble concentrating on things, such as reading the newspaper or watching television: not at all 8. Moving or speaking so slowly that other people could have noticed. Or the opposite - being so fidgety or restless that you have been moving around a lot more than usual: not at all 9. Thoughts that you would be better off or of hurting yourself in some way: not at all Total score: 0 Depression Screening Interpretation: Negative Depression Screening Done: Yes 69351 - PHQ-9 Billing: Yes Source: Developed by Drs. Michi Ragland, Lolis Holt, Elder Staton and colleagues, with an educational danny from [employer]. Thrive Questionnaire Date Thrive assessed: 05/10/23 I am a: Patient What is your living situation today?: I have a steady place to live Within the past 12 months, did the food you bought not last and you didn't have the money to get more?: Never true Within the past 12 months, did you worry whether your food would run out before you got money to buy more?: Never true Do you have trouble paying for medicines?: No Do you have trouble getting transportation to medical appointments?: No Do you have trouble paying your heating and electricity bill?: No Do you have trouble taking care of your child, family member or friend?: No Do you have trouble with day-to-day activities such as bathing, preparing meals, shopping, managing finances, etc.?: No Are you currently unemployed and looking for a job?: No Are you interested in more education?: No Please select the resources that you would like help with: None Currently or been in a relationship where the following occur: no concerns reported THRIVE Score: 0 AUDIT C Alcohol Use Questionnaire (AUDIT-C) 1. How often do you have a drink containing alcohol?: Monthly or less 2. How many drinks containing alcohol do you have on a typical day when you are drinking?: 1 or 2 3. How often do you have six or more drinks on one occasion?: Never Total Score: 1 Score Reviewed/Action Taken: Yes OLGA-7 AMB Questionnaire OLGA-7 Date OLGA - 7 assessed: 05/10/23 Feeling nervous, anxious, or on edge: 0 = Not at all Not being able to stop or control worryin = Not at all Worrying too much about different things: 0 = Not at all Trouble relaxin = Not at all Being so restless that it is hard to sit still: 0 = Not at all Becoming easily annoyed or irritable: 0 = Not at all Feeling afraid as if something awful might happen: 0 = Not at all Total OLGA-7 score (0-4 normal; 5-9 mild; 10-14 moderate; 15-21 severe): 0 Source: Developed by Drs. Michi Ragland, Lolis Holt, Elder Staton and colleagues, with an educational danny from [employer]. Review of Systems Const Denies chills, Denies fatigue, Denies fever(s) and Denies headache(s) ENT Denies dysphagia, Denies dizziness, Denies otalgia, Denies headache(s), Denies neck pain, Denies odynophagia and Denies sore throat Card Denies chest pain, Denies palpitations and Denies dyspnea Resp Denies cough and Denies dyspnea GI Denies abdominal pain, Denies constipation, Denies dysphagia, Denies heartburn, Denies diarrhea, Denies nausea, Denies odynophagia and Denies vomiting Denies difficulty voiding, Denies nocturia, Denies dysuria and Denies urinary urgency Musc Denies back pain, Denies arthralgias and Denies neck pain Skin/Breast Denies rash Neuro Denies dizziness and Denies headache(s) Endo Denies fatigue and Denies palpitations Physical exam (Primary Care) Vital Signs: Last Vital Signs Pulse 57 05/10/23 10:15 BP 100/62 05/10/23 10:15 Pulse Ox 98 05/10/23 10:15 Oxygen Delivery Method Room Air 05/10/23 10:15 BMI result Body Mass Index 22.8 Tobacco/Smoking Status: Tobacco use Status Tobacco use date assessed 05/10/23 05/10/23 10:16 Patient Tobacco Use Status Current everyday Tobacco 05/10/23 10:16 Tobacco use type Cigarette 05/10/23 10:16 e-Cigarette/Vaping Use Never Used 05/10/23 10:16 PHQ-9: PHQ-9 Score PHQ-9: Total score 0 05/10/23 10:21 Depression Screening Interpretation: Negative Thrive Assessment: Date of Thrive Assessment Date Thrive assessed 05/10/23 05/10/23 10:16 Currently or been in a relationship where the following occur: no concerns reported Const General: no acute distress and alert Neck Neck: Yes no lymphadenopathy and Yes supple Resp Auscultation: clear to auscultation bilaterally, no rales and no wheezes Cardio Rate: regular rate Rhythm: regular rhythm Heart sounds: no murmurs GI Palpation (GI): Soft to palpation and nontender Auscultation: normal bowel sounds General: Yes no CVA tenderness Back/Spine/Pelvis Back: no CVA tenderness Thoracic/Lumbar Spine: thoracic and lumbar spine normal to inspection Skin Rashes: no rashes Extrem General: Yes no clubbing, cyanosis or edema Assessment and Plan Assessment & Plan (1) Nephrolithiasis: Code(s): N20.0 - Calculus of kidney Plan: She is currently asymptomatic and her recent renal US showed NO stones in her kidneys Encouraged to continue increased oral fluids Follow up with urology as scheduled (2) Vitamin D deficiency: Code(s): E55.9 - Vitamin D deficiency, unspecified Plan: Continue Vitamin D3 2000 units QD Per request, will send her for labs (including STD testings) for follow up (3) Smoker: Code(s): F17.200 - Nicotine dependence, unspecified, uncomplicated Plan: Counseled again on smoking cessation (4) Cervical cancer screening: Code(s): Z12.4 - Encounter for screening for malignant neoplasm of cervix Plan: Per request, will refer her to gynecology for her annual pap smear and gynecologic exam Plan To return in 4 months for her annual physical examination Orders: Orders Complete Blood Count Auto Diff Today D64.9 - Anemia, unspecified Comprehensive [place]. Panel Fast Today E78.00 - Pure hypercholesterolemia, unspecified UA CC w/rflx Micro + Cult Today R30.0 - Dysuria Vitamin D 25-OH Total Today E55.9 - Vitamin D deficiency, unspecified Syphilis Screen Today Z20.2 - Contact with and (suspected) exposure to infections with a predominantly sexual mode of transmission HIV Ab/Ag Today Z20.2 - Contact with and (suspected) exposure to infections with a predominantly sexual mode of transmission Hepatitis B,C Profile Today Z20.2 - Contact with and (suspected) exposure to infections with a predominantly sexual mode of transmission Lipid Panel Today E78.00 - Pure hypercholesterolemia, unspecified TSH reflex Free T4 Today E78.00 - Pure hypercholesterolemia, unspecified CT NG by PCR Today Z20.2 - Contact with and (suspected) exposure to infections with a predominantly sexual mode of transmission Referrals HEAD NURSE Referral Z12.4 - Encounter for screening for malignant neoplasm of cervix Medications: Refilled cholecalciferol (vitamin D3) 50 mcg PO DAILY 90 days 90 caps 3RF E55.9 - Vitamin D deficiency, unspecified Coding Level of Care Code Est Pt Level 3 (29848) Diagnoses Nephrolithiasis N20.0 Vitamin D deficiency E55.9 Smoker F17.200 Cervical cancer screening Z12.4
[2023-05-10 10:15] VITALS: BP 100/62; PULSE 57; O2SAT 98; BMI 22.8
== END 2023-05-10 10:40 | disposition home or self-care (01) ==
PROVIDERS: PCP Internal Medicine; Visit Provider Internal Medicine
DX: N20.0 Calculus of kidney (principal); E55.9 Vitamin D deficiency, unspecified; F17.210 Nicotine dependence, cigarettes, uncomplicated
CPT/HCPCS: 99213

== ENCOUNTER 2023-05-22 09:33 | Outpatient (REF) | payer OTHER, SELFPAY ==
[2023-05-22 09:48] LABS: MANUAL DIFF FLAG NO
[2023-05-22 10:54] LABS: Appearance Urine Cloudy; Color Urine Yellow; Glucose Urine UA Negative (Negative); Leukocyte Esterase Urine Negative (Negative); Nitrite Urine Negative (Negative); PH 7.5 (5.0-9.0); Specific Gravity - Urine 1.025 (1.005-1.025); Urine Blood Negative (Negative); Urine Ketones Negative (Negative); Urine Protein Negative (Neg-Trace)
[2023-05-22 10:55] LABS: Basophils Percent Auto 0.4 % (0-2); Eosinophils Absolute Auto 0.1 X10*3/uL (0.0-0.4); Eosinophils Percent Auto 1.7 % (0-4); Hematocrit 39.4 % (37.0-47.0); Hemoglobin 13.2 g/dl (12.0-16.0); Imm Gran Abs Auto 0.01 X10*3/uL (0.00-0.03); Imm Gran Pct Auto 0.2 % (0.0-0.4); Lymphocytes Absolute Auto 1.5 X10*3/uL (1.2-4.9); Lymphocytes Percent Auto 30.6 % (20-40); Mean Corpuscular HGB Conc 33.5 g/dl (31.0-35.0); Mean Corpuscular Hemoglobin 32.6 pg (27.0-33.0); Mean Corpuscular Volume 97.3 fL (80.0-98.0); Mean Platelet Volume 10.5 fL (9.4-12.3); Monocytes Absolute Auto 0.3 X10*3/uL (0.1-1.2); Monocytes Percent Auto 6.4 % (2-11); Neutrophils Absolute Auto 2.9 x10*3/uL (2.0-8.3); Neutrophils Percent Auto 60.7 % (45-73); Platelet Count 235 X10*3/uL (160-400); Red Blood Count 4.05 X10*6/uL (4.20-5.50); Red Cell Distribution Width 12.1 % (11.0-16.0); White Blood Count 4.8 X10*3/uL (4.8-10.8)
[2023-05-22 11:41] LABS: Alanine Aminotransferase 8 U/L (0-31); Albumin Level 4.3 g/dL (3.5-5.0); Alkaline Phosphatase 47 U/L (39-117); Anion Gap 9 (12-20); Aspartate Amino Transferase 19 U/L (5-31); Bilirubin Total 0.5 mg/dL (0.0-1.0); Blood Urea Nitrogen 12 mg/dL (9-16); Calcium 9.1 mg/dL (8.4-10.2); Carbon Dioxide 28 mmol/L (22-29); Chloride 105 mmol/L (96-108); Cholesterol 142 mg/dL (<200); Estimated Glomerular Filt Rate > 60; Glucose Fasting 91 mg/dL (60-99); HDL Cholesterol 55 mg/dL (>40); LDL Cholesterol Calculated 77 mg/dL (<100); Potassium 4.2 mmol/L (3.3-5.1); Sodium 138 mmol/L (135-145); Total Protein 7.6 g/dL (6.5-8.0); Triglycerides 50 mg/dL (<150)
[2023-05-22 11:43] LABS: Vitamin D 25-OH Total 15.8 ng/mL (>30)
[2023-05-22 12:08] LABS: Syphilis Screen Nonreactive (Nonreactive)
[2023-05-22 12:11] LABS: HBS Num1 > 1000.00 mIU/mL (0-7.99); HBsAGNum1 0.35 S/CO (0.00-0.99); HIV AB/AG Nonreactive (Nonreactive); HIV Num 1 0.05 S/CO (0.00-0.99); Hepatitis B Core Antibody Nonreactive (Nonreactive); Hepatitis B Surface Antigen Negative (Negative); ~HepC Num1 0.12 S/CO (0.00-0.79); ~Hepatitis B Surface Antibody REACTIVE (Nonreactive); ~Hepatitis C Antibody Nonreactive (Nonreactive)
== END 2023-05-22 09:34 | disposition home or self-care (01) ==
LOC: HO.LAB 09:33
PROVIDERS: PCP Internal Medicine; Visit Provider Internal Medicine
DX: Z11.4 Encounter for screening for human immunodeficiency virus [HIV] (principal); R39.9 Unspecified symptoms and signs involving the genitourinary system; E78.00 Pure hypercholesterolemia, unspecified; Z20.2 Contact with and (suspected) exposure to infections with a predominantly sexual mode of transmission; D64.9 Anemia, unspecified; E55.9 Vitamin D deficiency, unspecified
CPT/HCPCS: 36415; 80053; 80061; 81003; 82306; 84443; 85025; 86704; 86706; 86780; 86803; 87340; 87389

== ENCOUNTER 2023-07-03 21:58 | Emergency (ER) | payer OTHER, SELFPAY ==
--- NOTE | ~2023-07-03 | XR_ITS ---
EXAMINATION: XR LUMBAR SPINE CLINICAL INFORMATION: Back injury COMPARISON: 10/05/2022 TECHNIQUE: Three views of the lumbar spine. FINDINGS: There is anatomic alignment of the lumbar vertebral bodies and posterior elements. Vertebral body heights and intervertebral disc spaces are maintained. No acute fracture is seen. Sacroiliac joints appear intact. XR/XR lumbar spine 2-3V IMPRESSION: No acute findings identified.
[2023-07-03 22:58] VITALS: BP 97/53; PULSE 63; RESP 16; TEMP 37.1; O2SAT 98; BMI 24.3
[2023-07-04 02:32] VITALS: BP 115/40; PULSE 68; RESP 17; TEMP 36.1; O2SAT 99
[2023-07-04 03:24] VITALS: BP 105/61; PULSE 60; RESP 17; TEMP 36.6; O2SAT 98
--- NOTE | 2023-07-04 03:35 | ED_ITS ---
HPI - Back Pain/Injury General Chief Complaint: Back Pain/Injury Stated Complaint: Back pain/ Work Inj Time Seen by Provider: 07/04/23 03:10 Source: patient Mode of arrival: ambulatory Limitations: no limitations History of Present Illness HPI Narrative: Patient while at work apparently was moving the bed around 18:00 since then having low back pain no paresthesia no weakness no bladder or bowel involvement no prior history of back pain patient able to ambulate otherwise Related Data Previous Rx's ?Medication ?Instructions ?Recorded pyridoxine (vitamin B6) 100 mg 100 mg PO DAILY 90 days #90 tabs 10/11/22 tablet solifenacin 5 mg tablet 5 mg PO DAILY spasm 14 days #14 10/31/22 tabs cholecalciferol (vitamin D3) 50 50 mcg PO DAILY 90 days #90 caps 05/11/23 mcg (2,000 unit) capsule cyclobenzaprine 10 mg tablet 10 mg PO Q8H #20 tabs 07/04/23 ibuprofen 600 mg tablet 600 mg PO Q6H PRN fever or pain 07/04/23 #30 tabs Allergies Allergy/AdvReac Type Severity Reaction Status Date / Time citalopram AdvReac Intermediate shortness Verified 07/03/23 23:00 of breath, chest pain Review of Systems Review of Systems: Yes all other systems are reviewed and are negative PMF Past Medical History Medical History Vitamin D deficiency Depression Anxiety MRSA carrier ASIA III (cervical intraepithelial neoplasia grade III) with severe dysplasia Carpal tunnel syndrome Surgical History History of tubal ligation Family History Family History Father Medical history unknown Mother Breast cancer Hypertension Sister Asthma Daughter Asthma Maternal Grandfather No problems noted. Social History Social History Housing: Apartment Alcohol intake: current Alcohol intake frequency: a few times a month Alcohol type: beer and wine Patient Tobacco Use Status: Current everyday Tobacco user Tobacco use type: Cigarette Cigarettes Per Day: 6 Years Smoked: 22 e-Cigarette/Vaping Use: Never Used Second Hand Smoke Exposure: Yes Advance Directives: No Advance Directives Information Provided: Yes service: No Current occupational status: employed Cognitive needs: No Hearing needs: No Vision needs: No Physical Exam Vital Signs: Vital Signs: Last Vital Signs Temp 97.8 F 07/04/23 03:24 Pulse 60 07/04/23 03:24 Resp 17 07/04/23 03:24 BP 105/61 07/04/23 03:24 Pulse Ox 98 07/04/23 03:24 O2 Del Method Room Air 07/04/23 03:24 BMI result Body Mass Index 24.3 Appearance: Alert. Oriented X3. No acute distress. ENT: Pharynx normal. Oral Mucosa moist Neck: Normal inspection. Neck supple. CVS: Normal heart rate and rhythm. Pulses normal. Respiratory: No respiratory distress. Equal air entry bilateral, Abdomen: Soft and nontender. Bowel sounds are present, back: Diffuse tenderness left pruning lumbar spine sacral sensations intact SLR negative bilaterally patient ambulating steady gait Skin: Skin warm and dry. Normal skin color. Normal skin turgor. Extremities: No lower extremity edema. No calf tenderness Neuro: Oriented X 3. Medical Decision Making Medical Decision Making MDM Narrative: Patient with low back strain no spinal tenderness likely strain of the lumbosacral area unlikely dislocation/fracture x-ray negative Differential Diagnosis Differential Diagnoses: The differential diagnosis associated with the presentation includes Lumbar strain/lumbar fracture Discharge Plan Discharge Clinical Impression: Low back strain Patient Disposition: Home, Self-Care Instructions: Low Back Strain (ED) Additional Instructions: Rest, apply ice Ibuprofen for pain Flexeril for muscle relaxation Follow with PCP if not better Prescriptions: New cyclobenzaprine 10 mg tablet 10 mg PO Q8H Qty: 20 0RF ibuprofen 600 mg tablet 600 mg PO Q6H PRN (Reason: fever or pain) Qty: 30 0RF No Action cholecalciferol (vitamin D3) 50 mcg (2,000 unit) capsule 50 mcg PO DAILY 90 Days Qty: 90 3RF solifenacin 5 mg tablet 5 mg PO DAILY 14 Days Qty: 14 0RF Rx Instructions: take 1 tab daily for 7 [address] stent in [address] pyridoxine (vitamin B6) 100 mg tablet 100 mg PO DAILY 90 Days Qty: 90 1RF Print Language: Kazakh
[2023-07-04] MEDS: Ibuprofen 600 MG TABLET PO (03:45)
[2023-07-04] MEDS: Cyclobenzaprine HCl 10 MG TABLET PO (03:46)
[2023-07-04 03:47] VITALS: BP 105/61; PULSE 60; RESP 17; TEMP 36.6; O2SAT 98
== END 2023-07-04 03:48 | disposition home or self-care (01) ==
PROVIDERS: Emergency Provider Internal Medicine; PCP Internal Medicine
DX: S39.012A Strain of muscle, fascia and tendon of lower back, initial encounter (principal); X50.0XXA Overexertion from strenuous movement or load, initial encounter; Y93.9 Activity, unspecified; Y92.89 Other specified places as the place of occurrence of the external cause; Y99.0 Civilian activity done for income or pay
CPT/HCPCS: 72100; 99283; 99284

== ENCOUNTER 2023-07-19 08:55 | Outpatient (AMB) | payer OTHER, SELFPAY ==
[2023-07-19 08:55] VITALS: BP 102/64; PULSE 57; O2SAT 98; BMI 23.2
--- NOTE | 2023-07-19 08:55 | A.OFFPC_ITS ---
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: No Allergies citalopram Adverse Reaction (Intermediate, Verified 07/19/23 09:14) shortness of breath, chest pain Medication List - Last Reconciled 07/19/23 by Danielito Jhaveri MD cholecalciferol (vitamin D3) 50 mcg PO DAILY 90 days cyclobenzaprine 10 mg PO Q8H ibuprofen 600 mg PO Q6H PRN pyridoxine (vitamin B6) 100 mg PO DAILY 90 days solifenacin 5 mg PO DAILY 14 days Tobacco use date assessed: 07/19/23 Dental Screening Dental Screen Date: 05/10/23 HPI ED follow up/back pain HPI Details Patient comes in today for her HDF/ED follow up visit She went to the ER a couple of weeks ago complaining of low back pain, which apparently started after she 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 a 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 a few 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 prior to her arrival at the ER Lumbar spine x-rays done at the ER showed no acute findings - x-rays were essentially negative/normal She was advised that she likely suffered a left and mid lumbar muscle strain and was prescribed some Ibuprofen and Cyclobenzaprine to take PRN for symptomatic relief Patient states that she currently feels okay and that her left and mid lower back pain have improved significantly over the past couple of weeks States that she has only felt a couple of mild twinges of pain recently over her left lower back / left flank area and these are mostly when she turns / twists her body Is eager to return to work if she is allowed to / cleared and needs a note from her PCP indicating this States that she has no other acute issues or complaints at present [facility] Medical History Vitamin D deficiency Depression Anxiety 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 Social History Housing: Apartment Alcohol intake: current Alcohol intake frequency: a few times a month Alcohol type: beer and wine Patient Tobacco Use Status: Current everyday Tobacco user Tobacco use type: Cigarette Cigarettes Per Day: 6 Years Smoked: 22 e-Cigarette/Vaping Use: Never Used Second Hand Smoke Exposure: Yes service: No Current occupational status: employed Cognitive needs: No Hearing needs: No Vision needs: No Questionnaire Thrive Questionnaire Date Thrive assessed: 07/19/23 I am a: Patient What is your living situation today?: I have a steady place to live Within the past 12 months, did the food you bought not last and you didn't have the money to get more?: Never true Within the past 12 months, did you worry whether your food would run out before you got money to buy more?: Never true Do you have trouble paying for medicines?: No Do you have trouble getting transportation to medical appointments?: No Do you have trouble paying your heating and electricity bill?: No Do you have trouble taking care of your child, family member or friend?: No Do you have trouble with day-to-day activities such as bathing, preparing meals, shopping, managing finances, etc.?: No Are you currently unemployed and looking for a job?: No Are you interested in more education?: No Please select the resources that you would like help with: None Currently or been in a relationship where the following occur: no concerns reported THRIVE Score: 0 AUDIT C Alcohol Use Questionnaire (AUDIT-C) 1. How often do you have a drink containing alcohol?: Monthly or less 2. How many drinks containing alcohol do you have on a typical day when you are drinking?: 1 or 2 3. How often do you have six or more drinks on one occasion?: Never Total Score: 1 Score Reviewed/Action Taken: Yes OLGA-7 AMB Questionnaire OLGA-7 Date OLGA - 7 assessed: 05/10/23 Source: Developed by Drs. Michi Ragland, Lolis Holt, Elder Staton and colleagues, with an educational danny from [employer]. Review of Systems Const Denies fatigue, Denies fever(s) and Denies headache(s) ENT Denies dysphagia, Denies dizziness, Denies headache(s), Denies neck pain and Denies sore throat Card Denies chest pain, Denies palpitations and Denies dyspnea Resp Denies cough and Denies dyspnea GI Denies abdominal pain, Denies constipation, Denies dysphagia, Denies diarrhea, Denies nausea and Denies vomiting Denies difficulty voiding, Denies nocturia and Denies dysuria Musc Reports back pain (over the mid and left lower back - resolving) and Denies neck pain Skin/Breast Denies rash Neuro Denies dizziness and Denies headache(s) Endo Denies fatigue and Denies palpitations Physical exam (Primary Care) Vital Signs: Last Vital Signs Pulse 57 07/19/23 08:55 BP 102/64 07/19/23 08:55 Pulse Ox 98 07/19/23 08:55 Oxygen Delivery Method Room Air 07/19/23 08:55 BMI result Body Mass Index 23.2 Tobacco/Smoking Status: Tobacco use Status Tobacco use date assessed 07/19/23 07/19/23 08:56 Patient Tobacco Use Status Current everyday Tobacco 07/19/23 08:56 Tobacco use type Cigarette 07/19/23 08:56 e-Cigarette/Vaping Use Never Used 07/19/23 08:56 Thrive Assessment: Date of Thrive Assessment Date Thrive assessed 07/19/23 07/19/23 08:56 Currently or been in a relationship where the following occur: no concerns reported Const General: no acute distress and alert Neck Neck: Yes no lymphadenopathy and Yes supple Resp Auscultation: clear to auscultation bilaterally, no rales and no wheezes Cardio Rate: regular rate Rhythm: regular rhythm Heart sounds: no murmurs GI Palpation (GI): Soft to palpation and nontender Auscultation: normal bowel sounds General: Yes no CVA tenderness Back/Spine/Pelvis Back: no CVA tenderness Thoracic/Lumbar Spine: paraspinal muscle tenderness (minimal) on the left in the lower lumbar Skin Rashes: no rashes Extrem General: Yes no clubbing, cyanosis or edema Assessment and Plan Assessment & Plan (1) Acute lumbar myofascial strain: Code(s): S39.012A - Strain of muscle, fascia and tendon of lower back, initial encounter Qualifiers: Encounter type: sequela Qualified Code(s): S39.012S - Strain of muscle, fascia and tendon of lower back, sequela Plan: Resolving Patient states that her left and mid lower back pain have improved significantly over the past couple of weeks and she has only felt a couple of mild twinges of pain recently, mostly when she turns / twists her body Is advised that she should be able to return to work in her current condition with no restrictions but have advised her to just be aware of and to be careful of what she does for the next couple of weeks so as not to aggravate her previous injury Advised that she can still take her Ibuprofen and Cyclobenzaprine as needed for the next few days but we expect her injury to continue to progress and subside with no further issues Plan To return as scheduled in August 2023 for her annual physical examination Coding Level of Care Code Est Pt Level 3 (99225) Diagnoses Acute myofascial strain of lumbar region, sequela S39.012S Encounter type: sequela
== END 2023-07-19 09:36 | disposition home or self-care (01) ==
PROVIDERS: PCP Internal Medicine; Visit Provider Internal Medicine
DX: S39.012A Strain of muscle, fascia and tendon of lower back, initial encounter (principal); Z04.2 Encounter for examination and observation following work accident
CPT/HCPCS: 99213

== ENCOUNTER 2023-11-22 17:23 | Emergency (ER) | payer OTHER, SELFPAY ==
--- NOTE | ~2023-11-22 | XR_ITS ---
EXAMINATION: XR FINGER, LEFT CLINICAL INFORMATION: 4th digit pain s/p fall COMPARISON: None available. TECHNIQUE: Three views of the left 4th finger. FINDINGS: Diffuse soft tissue swelling of the 4th digit. No fracture. Alignment is anatomic. Joint spaces are maintained. XR/XR finger LT min 2V IMPRESSION: Diffuse soft tissue swelling of the 4th digit. No fracture. Electronically signed by: Colleen Montes MD 11/22/2023 07:39 PM EDT RP
[2023-11-22 17:34] VITALS: BP 142/74; PULSE 85; RESP 20; TEMP 36.9; O2SAT 98; BMI 23.0
--- NOTE | 2023-11-22 17:35 | ED_ITS ---
HPI - Extremity Injury (Upper) General Chief Complaint: Extremity Problem Stated Complaint: finger inj s/p fall Time Seen by Provider: 11/22/23 19:09 Source: patient Mode of arrival: ambulatory Limitations: no limitations History of Present Illness HPI narrative: This is a 38-year-old woman who presents for evaluation of left finger injury. She states she was walking up her steps last night and fell forward onto her left hand. She reports pain and swelling to her left 4th finger with bruising. She states no wrist, arm or or elbow pain. She states no head strike or loss of consciousness. She states no vomiting. She has no abdominal pain, neck pain or paresthesias. She states no chest pain or dyspnea. Related Data Previous Rx's ?Medication ?Instructions ?Recorded pyridoxine (vitamin B6) 100 mg 100 mg PO DAILY 90 days #90 tabs 10/11/22 tablet solifenacin 5 mg tablet 5 mg PO DAILY spasm 14 days #14 10/31/22 tabs cholecalciferol (vitamin D3) 50 50 mcg PO DAILY 90 days #90 caps 05/11/23 mcg (2,000 unit) capsule cyclobenzaprine 10 mg tablet 10 mg PO Q8H #20 tabs 07/04/23 ibuprofen 600 mg tablet 600 mg PO Q6H PRN fever or pain 07/04/23 #30 tabs Allergies Allergy/AdvReac Type Severity Reaction Status Date / Time citalopram AdvReac Intermediate shortness Verified 11/22/23 17:36 of breath, chest pain Review of Systems Review of Systems: ROS as per HPI [facility] Past Medical History Medical History Vitamin D deficiency Depression Anxiety MRSA carrier ASIA III (cervical intraepithelial neoplasia grade III) with severe dysplasia Carpal tunnel syndrome Surgical History History of tubal ligation Family History Family History Father Medical history unknown Mother Breast cancer Hypertension Sister Asthma Daughter Asthma Maternal Grandfather No problems noted. Social History Social History Housing: Apartment Alcohol intake: current Alcohol intake frequency: a few times a month Alcohol type: beer and wine Patient Tobacco Use Status: Current everyday Tobacco user Tobacco use type: Cigarette Cigarettes Per Day: 6 Years Smoked: 22 e-Cigarette/Vaping Use: Never Used Second Hand Smoke Exposure: Yes Advance Directives: No Advance Directives Information Provided: No service: No Current occupational status: employed Cognitive needs: No Hearing needs: No Vision needs: No Physical Exam Vital Signs: Vital Signs: Last Vital Signs Temp 98 F 11/22/23 18:31 Pulse 64 11/22/23 18:31 Resp 16 11/22/23 18:31 BP 130/78 11/22/23 18:31 Pulse Ox 100 11/22/23 18:31 O2 Del Method Room Air 11/22/23 18:31 BMI result Body Mass Index 23.0 Gen: NAD, AOx3 HEENT: NCAT, EOMI, normal conjunctiva CV: RRR, 2+ bilateral radial pulses Pulm: CTAB, no increased work of breathing GI: Soft, NTND, no rebound, guarding or rigidity Neuro: Grossly non focal, sensation intact to light touch in bilateral upper extremity dermatomes C6-C8 MSK: Ecchymosis and edema to the left digit with limited flexion/extension, intact motor function to the bilateral upper extremity radial/ulnar/median/anterior interosseous nerves, no snuffbox tenderness bilaterally Course Course Course Narrative: This is an RME: Additional HPI, ROS, PE not included below will be deferred to primary provider. RME assessment and note performed by: Deisy Blanco PA-C This is a [id number] who presents to the ER with complaints of finger pain. Pt tripped and fell last night landed on her left finger. She is unable to bend finger secondary to pain. Plan: X-rays Medical Decision Making Medical Decision Making MDM Narrative: Differential diagnosis includes, but is not limited to sprain, strain, fracture, dislocation. Patient is afebrile and hemodynamically stable on room air. Exam is benign and reassuring. The affected extremity is neurovascularly intact. I reviewed imaging as below. Patient is provided a finger splint for sprain. On re-examination, patient is well-appearing and in no acute distress. ?there is no indication for further emergent evaluation in this otherwise well-appearing patient as above. ?Patient is provided written and verbal instructions, educational materials, recommendations for outpatient follow-up, strict return precautions and teach back is performed. ?Patient states understanding and agreement with plan of care. ?Patient is discharged home in stable and improved condition. Admission/Observation Consideration of admission/observation: Escalation of care including admission/observation considered Independent Interpretation I performed an independent interpretation of an: Plain X-Ray Interpretation: I independently reviewed and interpreted patient's x-ray which demonstrates no acute fracture or dislocation. Radiology Impression Discussion of test interpretation with radiology: I have reviewed the radiologist's reading. Radiologist Impression: XR/XR finger LT min 2V IMPRESSION: Diffuse soft tissue swelling of the 4th digit. No fracture. Electronically signed by: Colleen Montes MD 11/22/2023 07:39 PM EDT RP Dictated By: Colleen Montes MD Signed By: <Electronically signed by Colleen Montes MD in OV> 11/22/231938 DD/ 36 TD/TT: 11/22/23 175 Traffic Operations Engineer: TRINO Discharge Plan Discharge Clinical Impression: Sprain of finger, left Patient Disposition: Home, Self-Care Instructions: Finger Sprain (ED) Additional Instructions: You were seen and evaluated in the emergency room for a finger injury. Your x- rays showed no broken or dislocated bones. You most likely have a finger sprain. You were given a finger splint to stabilize your sprained finger. Please wilmer-tape your sprain finger to another finger when performing any physical activities to further decrease your risk of worsening injury or new injury. Please take 600 mg ibuprofen every 6 hours as needed for pain/swelling. Please elevate your finger as much as you can above the level of your heart to decrease swelling. Please ice your finger 20 minutes at a time several times a day. Please follow-up with your primary care doctor as needed. Please return to the emergency room with any new concerns or injuries. Prescriptions: No Action cholecalciferol (vitamin D3) 50 mcg (2,000 unit) capsule 50 mcg PO DAILY 90 Days Qty: 90 3RF cyclobenzaprine 10 mg tablet 10 mg PO Q8H Qty: 20 0RF ibuprofen 600 mg tablet 600 mg PO Q6H PRN (Reason: fever or pain) Qty: 30 0RF solifenacin 5 mg tablet 5 mg PO DAILY 14 Days Qty: 14 0RF Rx Instructions: take 1 tab daily for 7 days while stent in place pyridoxine (vitamin B6) 100 mg tablet 100 mg PO DAILY 90 Days Qty: 90 1RF Print Language: Turkish
[2023-11-22 18:31] VITALS: BP 130/78; PULSE 64; RESP 16; TEMP 36.6; O2SAT 100
--- NOTE | 2023-11-22 18:32 | PC.NURSE ---
Pt comes to ED today with 10/10 pain to L fourth finger. States injury from falling last night. Awaiting xray results.
[2023-11-22 21:56] VITALS: BP 130/78; PULSE 64; RESP 16; TEMP 36.6; O2SAT 100
== END 2023-11-22 21:57 | disposition home or self-care (01) ==
PROVIDERS: Emergency Provider Emergency Medicine; PCP Internal Medicine
DX: S63.615A Unspecified sprain of left ring finger, initial encounter (principal); W18.30XA Fall on same level, unspecified, initial encounter; Y93.9 Activity, unspecified; Y92.9 Unspecified place or not applicable; Y99.9 Unspecified external cause status; M79.642 Pain in left hand
CPT/HCPCS: 73140; 99283